=== PATIENT | male | born 1940 | race Caucasian/White ===

== ENCOUNTER → 2016-11-21 | Outpatient (CLI) | payer OTHER, MEDICARE ==
[~2016-11-21] MED LIST: ASPI81TA28 PO; CYAN500T13 PO; LISI-791 PO; NAPR1TAB9 PO; PROP120C PO; PRVC40 PO
--- NOTE | 2016-11-22 18:21 | PULMONARY FUNCTION TEST ---
CLINICAL DATA: A 76-year-old male with a height of 70 inches and a weight of [address] Abiola Soria with a history of asbestos exposure, cough, and dyspnea. He has been a smoker in the past. Spirometry pre- and post-bronchodilator, lung volumes, and DLCO were performed. FINDINGS: Prebronchodilator spirometry demonstrates mild obstructive airways disease. FVC was 80% of predicted. FEV1 was 74% of predicted. [id number] was 49% of predicted. There was no significant improvement after inhaled bronchodilator. Lung volumes demonstrate air trapping. There was no evidence of restrictive lung disease. Residual volume was 262% of predicted. Diffusion capacity was normal at 113% of predicted. IMPRESSION: Mild obstructive airways disease with no significant improvement after inhaled bronchodilator. There is no evidence of restrictive lung disease or reduction in diffusion capacity as would be expected with interstitial lung disease related asbestosis. MTDD
== END | disposition home or self-care (01) ==
LOC: C.RC 12:57
PROVIDERS: ATTEND Family Medicine
DX: J61 Pneumoconiosis due to asbestos and other mineral fibers (principal)

== ENCOUNTER → 2017-01-30 | Outpatient (CLI) | payer OTHER, MEDICARE ==
[2017-01-30 13:31] LABS: BASO % 0.3 %; BASO ABS # 0.02 K/uL (0-0.2); COMPLETE YES; EOS % 3.2 %; HEMATOCRIT 46.8 % (42-52); LYMPH % 20.6 %; LYMPH ABS # 1.22 K/uL (1.2-3.4); MEAN CELL VOLUME 90.3 fL (80-100); MEAN CORPUSCULAR HEMOGLOBIN 30.1 pg (25-34); MEAN CORPUSCULAR HGB CONC 33.3 g/dl (32-36); MONO % 12.4 %; NEUT % 63.5 %; PLATELET COUNT 142 K/uL (130-400); RED BLOOD COUNT 5.18 M/uL (4.7-6.1); WHITE BLOOD COUNT 5.91 K/uL (4.8-10.8)
[2017-01-30 15:01] LABS: ALT/SGPT 19 U/L (12-78); AST/SGOT 15 U/L (15-37); BLOOD UREA NITROGEN 25 mg/dl (7-18); BUN/CREATININE RATIO 22.4 (10-20); CALCIUM 9.1 mg/dl (8.5-10.1); CARBON DIOXIDE 30 mmol/L (21-32); CHLORIDE 106 mmol/L (98-107); CHOLESTEROL 135 mg/dl (0-200); GLUCOSE 89 mg/dl (70-99); SODIUM 140 mmol/L (136-145); TRIGLYCERIDES 151 mg/dl (0-150); VERY LOW DENSITY LIPOPROT CALC 30 mg/dl
[2017-01-30 15:05] LABS: ALB/GLOB RATIO 1.6 (0.9-2); ALKALINE PHOSPHATASE 74 U/L (45-117); CHOLESTEROL/HDL RATIO 3.4; HDL CHOLESTEROL 40 mg/dl; LDL CHOLESTEROL CALCULATED 65 mg/dl
== END | disposition home or self-care (01) ==
LOC: C.LABMFLN 09:01
PROVIDERS: ATTEND Family Medicine
DX: I10 Essential (primary) hypertension (principal); E78.5 Hyperlipidemia, unspecified

== ENCOUNTER 2017-08-31 00:50 | Observation (INO) | payer OTHER, MEDICARE ==
[2017-08-31] VITALS (10 sets, daily range): BP systolic 106–148; BP diastolic 55–89; PULSE 53–74; TEMP 36.3–37; O2SAT 90–95; Ht 177.8 cm; Wt 93.4 kg
[~2017-08-31] VITALS: Ht 177.8 cm; Wt 93.4 kg
--- NOTE | 2017-08-31 01:05 | EMERGENCY ROOM VISIT NOTE ---
History Report prepared by Patrick: Ventura Lowe Under the Supervision of: Dr. Shahram Hanna M.D. First contact with patient: 00:59 Chief Complaint: COUGH Stated Complaint: CHEST CONGESTION AND WHEEZING History of Present Illness The patient is a 76 year old male who presents to the Emergency Room with complaints of constant chest pain beginning a few days ago. The patient states that he was recently taken off lisinopril by his doctor. He notes that he has symptoms of congestion, a cough, and SOB. He reports that his wheezing worsens when he walks. He denies any abdominal pain. He also denies any history of clots , diabetes, and abdominal surgeries, but states that he has a history of asbestos exposure from his years in the [employer]. Source of History: patient Onset: a few days ago Position: chest Timing: constant Modifying Factors (Worsening): other (walking) Associated Symptoms: + cough, + SOB, No abdominal pain Note: He complains of congestion. Review of Systems See HPI for pertinent positives & negatives. A total of 10 systems reviewed and were otherwise negative. Past Medical & Surgical Medical Problems: (1) Bronchospasm (2) Dyspnea and respiratory abnormalities (3) No chronic problems Family History FHx: heart disease FHx: hypertension FHx: kidney disease Social History Smoking Status: Never Smoker Alcohol Use: none Drug Use: none Marital Status: Housing Status: lives with family Occupation Status: retired Current/Historical Medications Scheduled Aspirin (Aspirin Ec), 81 MG PO HS Cyanocobalamin (Vitamin B12 500MCG), 2,500 MCG PO QAM Losartan Potassium (Cozaar), 25 MG PO DAILY Pravastatin Sod (Pravastatin Sodium), 80 MG PO HS Propranolol Hcl (Propranolol Hcl Er), 120 MG PO QAM Allergies Coded Allergies: Hydrocortisone (Verified Allergy, Unknown, HALLUCIATIONS, 08/31/17) Physical Exam Vital Signs Date Time Temp Pulse Resp B/P (MAP) Pulse Ox O2 Delivery O2 Flow Rate FiO2 08/31/17 05:10 60 22 91 08/31/17 05:01 115/80 08/31/17 04:55 39 21 93 Room Air 08/31/17 04:40 55 23 92 08/31/17 04:31 122/61 08/31/17 04:25 39 16 94 08/31/17 04:10 52 23 93 08/31/17 03:55 39 17 92 08/31/17 03:46 135/76 08/31/17 03:41 109/69 08/31/17 03:40 37 24 93 08/31/17 03:33 104/73 08/31/17 03:25 52 19 93 08/31/17 03:11 08/31/17 03:10 45 25 95 08/31/17 03:05 67 21 08/31/17 03:02 08/31/17 02:57 106/61 08/31/17 02:50 50 30 98 08/31/17 02:10 64 20 143/90 97 Nebulizer 8.0 08/31/17 02:10 64 08/31/17 02:00 54 18 95 Room Air 08/31/17 00:53 36.8 68 18 170/62 94 Room Air Physical Exam GENERAL: Patient is well appearing and in mild distress. HEENT: No acute trauma, normocephalic atraumatic, mucous membranes moist, no nasal congestion, no scleral icterus. NECK: No stridor, no adenopathy, no meningismus, trachea is midline. LUNGS: No rhonchi. Dyspneic appearing, diffuse tight lung sounds with inspiratory and expiatory wheezing. HEART: Regular rate and rhythm. No murmurs, rubs, gallops appreciated. ABDOMEN: Soft, nontender, bowel sounds positive, no masses appreciated, no peritonitis. BACK: No midline tenderness, no CVA tenderness EXTREMITIES: Normal motion all extremities, no cyanosis, no edema. NEUROLOGIC: Alert and oriented, no acute motor or sensory deficits, no focal weakness, cranial nerves grossly intact. SKIN: No rash, no jaundice, no diaphoresis. Medical Decision & Procedures ER Provider Diagnostic Interpretation: Radiology results and stated below per my review and interpretation: 1 VIEW CHEST X-RAY: Haziness throughout left and right lower lobes. Moderately enlarged heart. Fibrotic changes noted. Chest X-RAY mildly worse compared to previous chest X-RAY from 2 years ago. Laboratory Results 08/31/17 01:40 Red Blood Count 5.23, Mean Corpuscular Volume 89.7, Mean Corpuscular Hemoglobin 29.4, Mean Corpuscular Hemoglobin Concent 32.8, Mean Platelet Volume 10.4, Neutrophils (%) (Auto) 71.7, Lymphocytes (%) (Auto) 11.9, Monocytes (%) (Auto) 14.1, Eosinophils (%) (Auto) 1.9, Basophils (%) (Auto) 0.3, Neutrophils # (Auto ) 4.89, Lymphocytes # (Auto) 0.81, Monocytes # (Auto) 0.96, Eosinophils # (Auto ) 0.13, Basophils # (Auto) 0.02 08/31/17 01:40 Test 08/31/17 01:40 White Blood Count 6.82 K/uL (4.8-10.8) Red Blood Count 5.23 M/uL (4.7-6.1) Hemoglobin 15.4 g/dL (14.0-18.0) Hematocrit 46.9 % (42-52) Mean Corpuscular Volume 89.7 fL (80-100) Mean Corpuscular Hemoglobin 29.4 pg (25-34) Mean Corpuscular Hemoglobin Concent 32.8 g/dl (32-36) Platelet Count 119 K/uL (130-400) Mean Platelet Volume 10.4 fL (7.4-10.4) Neutrophils (%) (Auto) 71.7 % Lymphocytes (%) (Auto) 11.9 % Monocytes (%) (Auto) 14.1 % Eosinophils (%) (Auto) 1.9 % Basophils (%) (Auto) 0.3 % Neutrophils # (Auto) 4.89 K/uL (1.4-6.5) Lymphocytes # (Auto) 0.81 K/uL (1.2-3.4) Monocytes # (Auto) 0.96 K/uL (0.11-0.59) Eosinophils # (Auto) 0.13 K/uL (0-0.5) Basophils # (Auto) 0.02 K/uL (0-0.2) RDW Standard Deviation 44.1 fL (36.4-46.3) RDW Coefficient of Variation 13.4 % (11.5-14.5) Immature Granulocyte % (Auto) 0.1 % Immature Granulocyte # (Auto) 0.01 K/uL (0.00-0.02) D-Dimer 360 ug/L FEU (0-500) Anion Gap 5.0 mmol/L (3-11) Est Creatinine Clear Calc Drug Dose 69.6 ml/min Estimated GFR () 79.5 Estimated GFR (Non- 68.6 BUN/Creatinine Ratio 18.4 (10-20) Calcium Level 9.0 mg/dl (8.5-10.1) Troponin I < 0.015 ng/ml (0-0.045) Laboratory results as reviewed by me. Medications Administered Medications (Trade) Dose Ordered Sig/Nupur Route Start Time Stop Time Status Last Admin Dose Admin Albuterol/ Ipratropium (Duoneb) 12 ml ONE ONCE INH 08/31/17 01:15 08/31/17 01:16 DC 08/31/17 01:56 12 ML Dexamethasone Sodium Phosphate (Dexamethasone Inj Pf) 10 mg NOW ONCE IV 08/31/17 01:15 08/31/17 01:16 DC 08/31/17 01:37 10 MG ECG Indication: chest pain Rate (beats per minute): 67 Rhythm: sinus rhythm Findings: RBBB, other (Multiple PVCs) Change: Patient's electrocardiogram interpreted by me. ED Course 0100: The patient was evaluated in room C8. A complete history and physical exam was performed. 0220: I reevaluated and updated the patient. She is still on a nebulizer. He says that his breathing is better. On his lung exam, breath sounds have improved but there is still extensive wheezing. While evaluating him, his heart rate dropped to 30 for about a minute. 0207: I rechecked the patient. After the nebulizer, the patient is still wheezing quite significantly. 0311: Discussed the patient's case with Dr. Muro - Resident stone gluer for SHARRI Chambers. 0400: Discussed the patient's case with Dr. Muro. 0416: Upon reevaluation, the patient is stable. Discussed results and treatment plan with the patient. He verbalized understanding and agreement with the treatment plan. Discussed the patient's case with SHARRI Chambers. The patient will be evaluated for further treatment and disposition. Medical Decision Differential: Infectious, Reactive Airway Disease, Pneumonia, Pneumothorax, COPD , CHF, ACS, Pulmonary Embolism, MSK, GI, Dissection, amongst other etiologies entertained. 76 yr old male arrives for evaluation of worsening shortness of breath. He is not septic appearing and afebrile on arrival with good vitals. He has history of asbestos related lung disease but notes usually no wheezing nor significant breathing difficulties. Over last 2 week worsening SHOB. He is quite tight with diffuse wheezing on exam initially. Given 1-2 hour long neb with improvement htough still dyspneic. Discussed with him and family who note this is clearly not his baseline. Does have questionable RLL infiltrate vs fibrotic lung disease. Without overt infection by rest of exam held on abx until hospitalist evaluation. Discussed at length with them and given his exam, along with this odd finding of severe bradycardia (despite asymtomatic) will bring in for further treatment/work-up while waiting on steroids to set in. Medication Reconcilliation Current Medication List: was personally reviewed by me Blood Pressure Screening Patient's blood pressure: Normal blood pressure Blood pressure disposition: Did not require urgent referral Consults Time Called: 0308 Consulting Physician: Dr. Muro - Resident stone gluer [place]. [place]izcaino [facility] [place]: [phone]: Discussed the patient's case with Dr. Muro. 0400: Discussed the patient's case with Dr. Muro. Additional Consults: Time Called: 0413 Consulted Physician: Dr. Tom Vizcaino [facility] [place]: 0416 Additional Comments: Discussed the patient's case. The patient will be evaluated for further treatment and disposition. Impression Primary Impression: COPD exacerbation Additional Impression: Bradycardia Scribe Attestation The scribe's documentation has been prepared under my direction and personally reviewed by me in its entirety. I confirm that the note above accurately reflects all work, treatment, procedures, and medical decision making performed by me. Departure Information Dispostion Being Evaluated By Hospitalist Referrals Abiola Soria M.D. (PCP) Patient Instructions My [facility] Problem Qualifiers
[2017-08-31] MEDS ORDERED: DEXAMETHASONE **PF** INJ 10 MG/ML VIAL IV ONE (01:15)
[2017-08-31] MEDS ORDERED: ALBUT/IPRATROP 3MG/0.5MG NEB 3 ML VIAL INH ONE (01:15)
[2017-08-31] MEDS ORDERED: LOSA25TA18 PO (01:46)
[2017-08-31 02:02] LABS: BASO % 0.3 %; BASO ABS # 0.02 K/uL (0-0.2); EOS % 1.9 %; EOS ABS # 0.13 K/uL (0-0.5); HEMATOCRIT 46.9 % (42-52); HEMOGLOBIN 15.4 g/dL (14.0-18.0); IG# 0.01 K/uL (0.00-0.02); LYMPH % 11.9 %; LYMPH ABS # 0.81 K/uL (1.2-3.4); MEAN CELL VOLUME 89.7 fL (80-100); MEAN CORPUSCULAR HEMOGLOBIN 29.4 pg (25-34); MEAN CORPUSCULAR HGB CONC 32.8 g/dl (32-36); MEAN PLATELET VOLUME 10.4 fL (7.4-10.4); MONO % 14.1 %; MONO ABS # 0.96 K/uL (0.11-0.59); NEUT % 71.7 %; NEUT ABS # 4.89 K/uL (1.4-6.5); PLATELET COUNT 119 K/uL (130-400); RED CELL DISTRIBUTION WIDTH CV 13.4 % (11.5-14.5); RED CELL DISTRIBUTION WIDTH SD 44.1 fL (36.4-46.3); WHITE BLOOD COUNT 6.82 K/uL (4.8-10.8)
[2017-08-31 02:15] LABS: BLOOD UREA NITROGEN 19 mg/dl (7-18); CARBON DIOXIDE 28 mmol/L (21-32); CREATININE 1.05 mg/dl (0.60-1.40); GLUCOSE 95 mg/dl (70-99); POTASSIUM 4.1 mmol/L (3.5-5.1); SODIUM 138 mmol/L (136-145)
[2017-08-31] MEDS ORDERED: MAGNESIUM HYDROXIDE SUSP 30 ML UDC PO PRN (04:30)
[2017-08-31] MEDS ORDERED: MoRPHine SULFATE 2 MG/ML CARP IV PRN (04:30)
[2017-08-31] MEDS ORDERED: ALUMINUM/MAGNESIUM/SIMETH (MAALOX MAX) 30 ML UDC PO PRN (04:30)
[2017-08-31] MEDS ORDERED: ACETAMINOPHEN 325 MG TAB PO PRN (04:30)
[2017-08-31] MEDS ORDERED: NITROGLYCERIN 0.4 MG SL PER TAB CHARGE SL PRN (04:30)
[2017-08-31] MEDS ORDERED: POLYETHYLENE (MIRALAX) 17 GM PACK PO PRN (04:30)
--- NOTE | 2017-08-31 04:35 | History and Physical ---
History & Physical Date & Time of Service: Aug 31, 2017 at 04:34 Chief Complaint: Chest Congestion And Wheezing Primary Care Physician: Abiola Soria M.D. History of Present Illness Source: patient, hospital records This is a 76 yo m with a h/o asbestosis, CABG (1984 x 3), essential tremor treated by neurostimulator that is suffering from a acute dyspneic episodes which started earlier this evening. The patient states that throughout the day today he had significant and increased rhinorrhea and which resulted in increased coughing and soon dyspnea. When he arrived in the ED he was in respiratory distress and diffusely wheezing. He received Decadron and duoneb x 1 hour. On assessment that patient states he has significant improvement in symptoms however occasional wheezing, He has not tried ambulating as of yet. Denies sputum production. He never had any chest pain, abdominal pain, fever, myalgias. While on the monitor he was found to have episodes of bigeminy which were asymptomatic. Past Medical/Surgical History CABG 1984 x 3 vessels Asbestosis Essential tremor with neurostimulator CAD HLD Family History FHx: heart disease FHx: hypertension FHx: kidney disease Social History Smoking Status: Never Smoker Smokeless Tobacco Use: No Alcohol Use: none Drug Use: none Marital Status: Housing status: lives with family Occupational Status: retired Immunizations History of Influenza Vaccine: Yes History of Tetanus Vaccine?: Yes History of Pneumococcal: Yes History of Hepatitis B Vaccine: No Allergies Coded Allergies: Hydrocortisone (Verified Allergy, Unknown, HALLUCIATIONS, 08/31/17) Home Medications Scheduled Aspirin (Aspirin Ec), 81 MG PO HS Cyanocobalamin (Vitamin B12 500MCG), 2,500 MCG PO QAM Losartan Potassium (Cozaar), 25 MG PO DAILY Pravastatin Sod (Pravastatin Sodium), 80 MG PO HS Propranolol Hcl (Propranolol Hcl Er), 120 MG PO QAM Review of Systems Constitutional: No fever, No chills, No sweats Eyes: No worsening of vision ENT: No hearing loss Respiratory: + cough, + wheezing, + shortness of breath, + dyspnea on exertion , + dyspnea at rest, No sputum, No hemoptysis Cardiovascular: No chest pain, No palpitations Abdomen: No pain, No nausea, No vomiting, No diarrhea, No constipation Musculoskeletal: No joint pain, No muscle pain Genitourinary - Male: No hematuria Neurologic: No weakness, No numbness/tingling, No balance problems Psychiatric: No depression symptoms Endocrine: No fatigue Hematologic / Lymphatic: No abnormal bleeding/bruising Integumentary: No rash Physical Exam Vital Signs Date Time Temp Pulse Resp B/P (MAP) Pulse Ox O2 Delivery O2 Flow Rate FiO2 08/31/17 03:05 67 21 08/31/17 03:02 08/31/17 02:57 106/61 08/31/17 02:50 50 30 98 08/31/17 02:10 64 20 143/90 97 Nebulizer 8.0 08/31/17 02:10 64 08/31/17 02:00 54 18 95 Room Air 08/31/17 00:53 36.8 68 18 170/62 94 Room Air General Appearance: no apparent distress Head: normocephalic, atraumatic Eyes: normal inspection ENT: normal ENT inspection Neck: supple Respiratory/Chest: + respiratory distress (mild), + decreased breath sounds ( bilat bases), + crackles (bilat bases), + wheezing (exp wheeze) Cardiovascular: regular rate, rhythm, no murmur, normal peripheral pulses, + pertinent finding (occasional PVC appreciated) Abdomen/GI: normal bowel sounds, non tender, soft Back: normal inspection, no CVA tenderness, normal range of motion Extremities/Musculoskelatal: normal inspection, no calf tenderness, no pedal edema, normal range of motion Neurologic/Psych: alert, normal mood/affect, oriented x 3 Skin: normal color, warm/dry, no rash Lymphatic: no adenopathy Diagnostics Laboratory Results Results Past 24 Hours Test 08/31/17 01:40 Range/Units White Blood Count 6.82 4.8-10.8 K/uL Red Blood Count 5.23 4.7-6.1 M/uL Hemoglobin 15.4 14.0-18.0 g/dL Hematocrit 46.9 42-52 % Mean Corpuscular Volume 89.7 80-100 fL Mean Corpuscular Hemoglobin 29.4 25-34 pg Mean Corpuscular Hemoglobin Concent 32.8 32-36 g/dl Platelet Count 119 130-400 K/uL Mean Platelet Volume 10.4 7.4-10.4 fL Neutrophils (%) (Auto) 71.7 % Lymphocytes (%) (Auto) 11.9 % Monocytes (%) (Auto) 14.1 % Eosinophils (%) (Auto) 1.9 % Basophils (%) (Auto) 0.3 % Neutrophils # (Auto) 4.89 1.4-6.5 K/uL Lymphocytes # (Auto) 0.81 1.2-3.4 K/uL Monocytes # (Auto) 0.96 0.11-0.59 K/uL Eosinophils # (Auto) 0.13 0-0.5 K/uL Basophils # (Auto) 0.02 0-0.2 K/uL RDW Standard Deviation 44.1 36.4-46.3 fL RDW Coefficient of Variation 13.4 11.5-14.5 % Immature Granulocyte % (Auto) 0.1 % Immature Granulocyte # (Auto) 0.01 0.00-0.02 K/uL D-Dimer 360 0-500 ug/L FEU Sodium Level 138 136-145 mmol/L Potassium Level 4.1 3.5-5.1 mmol/L Chloride Level 105 98-107 mmol/L Carbon Dioxide Level 28 21-32 mmol/L Anion Gap 5.0 3-11 mmol/L Blood Urea Nitrogen 19 7-18 mg/dl Creatinine 1.05 0.60-1.40 mg/dl Est Creatinine Clear Calc Drug Dose 69.6 ml/min Estimated GFR () 79.5 Estimated GFR (Non- 68.6 BUN/Creatinine Ratio 18.4 10-20 Random Glucose 95 70-99 mg/dl Calcium Level 9.0 8.5-10.1 mg/dl Troponin I < 0.015 0-0.045 ng/ml Diagnostic Radiology CXR- possible right lower lobe consolidation, post sternotomy changes noted and stimulator noted EKG HR 67, bigeminy noted, no ischemic changes appreciated Impression Assessment and Plan This is a 76 yo m with a h/o asbestosis, CABG presenting to us with acute bronchospasm Bronchospasm possibly secondary to viral illness vs bacterial infection - tele admission ( abn EKG) - Prednisone PO initiated 60 mg with taper - Rocephin and doxy - procal - Xopenex/ atrovent inhalation CABG/ HLD - cont ASA 81 mg - Losartan 25 mg, Pravastatin 80 mg and Propranolol 120 mg cont'd DNR confirmed by patient and family Attending addendum: I have physically seen this patient, have supervised the medical residents activities, and agree with the H&P unless as otherwise noted. Assessment and Plan: Acute bronchospasm/history of asbestos exposure/probable pulmonary fibrosis with superimposed infection-- Ceftriaxone IV and doxycycline by mouth Xopenex/Atrovent nebulizer every 6 hours while awake and every 2 hours when necessary Course of oral prednisone. CAD/hypertension/history of CABG/nonspecific ST-T changes on EKG-- The patient will be admitted to telemetry for serial cardiac enzymes, serial EKG's, cardiac rhythm monitoring and a 2-D echocardiogram with Dopplers. Continue aspirin 81 mg daily Continue losartan 25 mg daily and propranolol ER 120 mg by mouth daily. Level of Care Telemetry Advanced Directives Existing Advance Directive: No Existing Living Will: No Existing Power of Cupboard Builder: No Resuscitation Status FULL RESUSCITATION VTE Prophylaxis VTE Risk Assessment Done? Y/N: Yes Risk Level: Moderate Given or contraindicated: Unfractionated heparin SQ, SCD's Social Service Consult None Apply Note Total Time: Critical Care 30 - 74 minutes Additional Copies To Abiola Soria M.D.
[2017-08-31] MEDS ORDERED: IV FLUIDS COMPLETED PRN (05:30)
--- NOTE | 2017-08-31 06:34 | DIAGNOSTIC IMAGING REPORT ---
CHEST ONE VIEW PORTABLE CLINICAL HISTORY: Chest Pain dyspnea COMPARISON STUDY: 04/25/2016 FINDINGS: Mild chronic megaly. Median sternotomy. Parenchymal infiltrate left base. Lungs otherwise appear clear. IMPRESSION: Infiltrate left base. The above report was generated using voice recognition software. It may contain grammatical, syntax or spelling errors. Electronically signed by: Caesar Oliver M.D. 08/31/2017 6:33 AM Dictated Date/Time: 08/31/2017 6:31 AM
[2017-08-31 07:17] LABS: INR 1.1 (0.9-1.1)
[2017-08-31] MEDS: IPRATROPIUM BROMIDE NEB SOLN 0.02% 2.5 ML VIAL INH SCH ×3 (07:17→19:12)
[2017-08-31] MEDS: LEVALBUTEROL 1.25MG/3ML NEB INH SCH ×3 (07:17→19:12)
[2017-08-31] MEDS: CEFTRIAXONE SOD INJ 1 GM in DEXTROSE 5% ADD-VANTAGE 50ML 50 ML IV SCH (07:55)
[2017-08-31] MEDS: DOXYCYCLINE IV 100 MG in DEXTROSE 5% 100ML 100 ML IV SCH ×2 (09:43→20:41)
[2017-08-31] MEDS: HEPARIN SOD 5000 UNIT/0.5 ML CARP SQ SCH ×2 (09:47→20:41)
--- NOTE | 2017-08-31 19:36 | Progress Note ---
Subjective Date of Service: Aug 31, 2017. Subjective Pt evaluation today including: conversation w/ patient, physical exam, chart review, lab review, review of inpatient medication list Pain: controlled PO Intake: adequate Voiding: no voiding problems feeling slightly better but still has SOB Problem List Medical Problems: (1) Bradycardia Status: Acute (2) COPD exacerbation Status: Acute Review of Systems Constitutional: No see HPI, No fever, No chills, No sweats, No weight loss, No weakness, No fatigue, No problem reported Eyes: No see HPI, No worsening of vision, No eye pain, No redness, No discharge , No diplopia, No problem reported ENT: No see HPI, No hearing loss, No unusual epistaxis, No nasal symptoms, No sore throat, No tinnitus, No dental problems, No trouble swallowing, No problem reported Respiratory: + cough, + wheezing, + shortness of breath, No see HPI, No sputum , No dyspnea on exertion, No dyspnea at rest, No hemoptysis, No problem reported Cardiac: No see HPI, No chest pain, No orthopnea, No PND, No edema, No claudication, No palpitations, No problem reported Abdomen: No see HPI, No pain, No nausea, No vomiting, No diarrhea, No constipation, No GI bleeding, No problem reported Musculoskeletal: No see HPI, No joint pain, No muscle pain, No swelling, No calf pain, No problem reported Male : No see HPI, No dysuria, No urinary frequency, No incontinence, No nocturia more than once/night, No slowing stream, No hematuria, No sexual dysfunction, No problem reported Neurologic: No see HPI, No memory loss, No paralysis, No weakness, No numbness/ tingling, No vertigo, No balance problems, No problem reported Psychiatric: No see HPI, No depression symptoms, No anhedonism, No anxiety, No insomnia, No substance abuse, No problem reported Heme: No see HPI, No abnormal bleeding/bruising, No clotting problems, No swollen lymph nodes, No night sweats, No problem reported Endo: No see HPI, No fatigue, No excessive thirst, No excessive urination, No problem reported Skin: No see HPI, No rash, No itch, No new/changing skin lesions, No color change, No bleeding, No problem reported Medications Current Inpatient Medications Medications (Trade) Dose Ordered Sig/Nupur Route Start Time Stop Time Status Last Admin Dose Admin Heparin Sodium (Porcine) (Heparin Sq 5000 Unit/0.5ml) 5,000 unit Q12 SQ 08/31/17 09:00 09/30/17 08:59 08/31/17 09:47 5,000 UNIT Acetaminophen (Tylenol Tab) 650 mg Q4H PRN PO 08/31/17 04:30 09/30/17 04:29 Al Hydrox/Mg Hydrox/Simethicone (Maalox Max Susp) 15 ml Q4H PRN PO 08/31/17 04:30 09/30/17 04:29 Magnesium Hydroxide (Milk Of Magnesia Susp) 30 ml Q12H PRN PO 08/31/17 04:30 09/30/17 04:29 Nitroglycerin (Nitrostat Tab) 0.4 mg UD PRN SL 08/31/17 04:30 09/30/17 04:29 Morphine Sulfate (MoRPHine SULFATE INJ) 2 mg Q30M PRN IV 08/31/17 04:30 09/14/17 04:29 Polyethylene (Miralax Powder Packet) 17 gm DAILY PRN PO 08/31/17 04:30 09/30/17 04:29 Prednisone (PredniSONE TAB) 60 mg Taper DAILY PO 08/31/17 09:00 09/12/17 08:59 08/31/17 07:55 60 MG Levalbuterol (Xopenex 1.25MG/ 3ML Neb) 1.25 mg Q6R INH 08/31/17 09:00 09/30/17 08:59 08/31/17 19:12 1.25 MG Ipratropium [place] (Atrovent 0.02% 0.5MG/2.5ML Neb) 0.5 mg Q6R INH 08/31/17 09:00 09/30/17 08:59 08/31/17 19:12 0.5 MG Ceftriaxone Sodium 1 gm/ Dextrose 50 ml @ 100 mls/hr Q24H IV 08/31/17 07:00 09/02/17 06:59 08/31/17 07:55 100 MLS/HR Doxycycline Hyclate 100 mg/ Dextrose 110 ml @ 50 mls/hr BID IV 08/31/17 09:00 09/02/17 08:59 08/31/17 09:43 50 MLS/HR Miscellaneous (Iv Fluids Completed) 1 ea PRN PRN N/A 08/31/17 05:30 08/31/18 05:29 Objective Vital Signs Date Time Temp Pulse Resp B/P (MAP) Pulse Ox O2 Delivery O2 Flow Rate FiO2 08/31/17 19:12 68 16 93 Room Air 08/31/17 16:00 Room Air 08/31/17 15:30 37.0 56 20 110/61 (77) 92 Room Air 08/31/17 14:18 70 16 93 Room Air 08/31/17 12:00 Room Air 08/31/17 11:24 36.7 72 16 116/55 (75) 94 Room Air 08/31/17 08:00 36.8 53 18 148/89 94 Room Air 08/31/17 07:20 36.7 71 16 106/67 (80) 94 Room Air 08/31/17 07:18 64 16 95 Room Air 08/31/17 06:15 51 21 93 08/31/17 06:02 124/54 08/31/17 06:00 37 18 91 08/31/17 05:45 35 13 92 08/31/17 05:32 123/42 08/31/17 05:30 43 20 92 08/31/17 05:15 55 19 93 08/31/17 05:10 60 22 91 08/31/17 05:01 115/80 08/31/17 04:55 39 21 93 Room Air 08/31/17 04:40 55 23 92 08/31/17 04:31 122/61 08/31/17 04:25 39 16 94 08/31/17 04:10 52 23 93 08/31/17 03:55 39 17 92 08/31/17 03:46 135/76 08/31/17 03:41 109/69 08/31/17 03:40 37 24 93 08/31/17 03:33 104/73 08/31/17 03:25 52 19 93 08/31/17 03:11 08/31/17 03:10 45 25 95 08/31/17 03:05 67 21 08/31/17 03:02 08/31/17 02:57 106/61 08/31/17 02:50 50 30 98 08/31/17 02:10 64 20 143/90 97 Nebulizer 8.0 08/31/17 02:10 64 1/26/18 02:00 54 18 95 Room Air 08/31/17 00:53 36.8 68 18 170/62 94 Room Air Physical Exam General Appearance: WD/WN, no apparent distress Eyes: normal inspection, EOMI ENT: normal ENT inspection, hearing grossly normal Neck: supple Respiratory/Chest: chest non-tender, no accessory muscle use, + decreased breath sounds, + crackles, + wheezing Cardiovascular: regular rate, rhythm, no edema, no gallop, no JVD, no murmur Abdomen: normal bowel sounds, non tender, soft, no organomegaly, no pulsatile mass Extremities: normal range of motion, non-tender, normal inspection, no pedal edema, no calf tenderness Neurologic/Psychiatric: data warehouse specialist II-XII nml as tested, no motor/sensory deficits, alert, normal mood/affect, oriented x 3 Skin: normal color, warm/dry, no rash Laboratory Results Last 24 Hours Test 08/31/17 00:00 08/31/17 01:40 08/31/17 06:58 White Blood Count 6.82 K/uL Red Blood Count 5.23 M/uL Hemoglobin 15.4 g/dL Hematocrit 46.9 % Mean Corpuscular Volume 89.7 fL Mean Corpuscular Hemoglobin 29.4 pg Mean Corpuscular Hemoglobin Concent 32.8 g/dl Platelet Count 119 K/uL Mean Platelet Volume 10.4 fL Neutrophils (%) (Auto) 71.7 % Lymphocytes (%) (Auto) 11.9 % Monocytes (%) (Auto) 14.1 % Eosinophils (%) (Auto) 1.9 % Basophils (%) (Auto) 0.3 % Neutrophils # (Auto) 4.89 K/uL Lymphocytes # (Auto) 0.81 K/uL Monocytes # (Auto) 0.96 K/uL Eosinophils # (Auto) 0.13 K/uL Basophils # (Auto) 0.02 K/uL RDW Standard Deviation 44.1 fL RDW Coefficient of Variation 13.4 % Immature Granulocyte % (Auto) 0.1 % Immature Granulocyte # (Auto) 0.01 K/uL D-Dimer 360 ug/L FEU Sodium Level 138 mmol/L Potassium Level 4.1 mmol/L Chloride Level 105 mmol/L Carbon Dioxide Level 28 mmol/L Anion Gap 5.0 mmol/L Blood Urea Nitrogen 19 mg/dl Creatinine 1.05 mg/dl Est Creatinine Clear Calc Drug Dose 69.6 ml/min Estimated GFR () 79.5 Estimated GFR (Non- 68.6 BUN/Creatinine Ratio 18.4 Random Glucose 95 mg/dl Calcium Level 9.0 mg/dl Troponin I < 0.015 ng/ml Procalcitonin < 0.05 ng/ml Prothrombin Time 11.1 SECONDS Prothromb Time International Ratio 1.1 Assessment and Plan 76 years old man w Hx of Asbestus exposure, CAD S/P CABG and dyslipidemia presented with URTI and bronchospasm he was found to have an abnormal EKG Assessment: SOB secondary to below Bronchitis unspecified (viral or bacterial) abnormal EKG Asbestosis CAD S/P CABG Dyslipidemia Plan: continue bronchodilators (switch Duoneb to xopenex/ipratrobium) continue tapering dose of steroids continue Abx for possible bronchitis add lactinex for C diff prophylaxis order labs in am serial cardiac enz eventually will need ischemic work up so will consult multiple spindle router operator from now , Dr Chapman continue ASA , Losartan 25 mg, Pravastatin 80 mg and Propranolol Heparin for DVt prophylaxis
[2017-08-31] MEDS ORDERED: LEVALBUTEROL/IPRATROPIUM NEB INH SCH (21:00)
[2017-09-01 04:07] VITALS: BP 138/64; PULSE 75; TEMP 36.7; O2SAT 92
[2017-09-01 06:22] LABS: BASO % 0.1 %; BASO ABS # 0.01 K/uL (0-0.2); HEMATOCRIT 43.8 % (42-52); HEMOGLOBIN 14.5 g/dL (14.0-18.0); IG# 0.02 K/uL (0.00-0.02); LYMPH % 8.5 %; LYMPH ABS # 0.95 K/uL (1.2-3.4); MEAN CELL VOLUME 89.2 fL (80-100); MEAN CORPUSCULAR HEMOGLOBIN 29.5 pg (25-34); MEAN CORPUSCULAR HGB CONC 33.1 g/dl (32-36); MEAN PLATELET VOLUME 10.5 fL (7.4-10.4); MONO % 12.3 %; MONO ABS # 1.37 K/uL (0.11-0.59); NEUT % 78.9 %; NEUT ABS # 8.79 K/uL (1.4-6.5); PLATELET COUNT 128 K/uL (130-400); RED CELL DISTRIBUTION WIDTH CV 13.6 % (11.5-14.5); RED CELL DISTRIBUTION WIDTH SD 44.2 fL (36.4-46.3); WHITE BLOOD COUNT 11.14 K/uL (4.8-10.8)
[2017-09-01] MEDS: CEFTRIAXONE SOD INJ 1 GM in DEXTROSE 5% ADD-VANTAGE 50ML 50 ML IV SCH (06:30)
[2017-09-01 06:49] LABS: ALBUMIN 3.5 gm/dl (3.4-5.0); CALCIUM 8.8 mg/dl (8.5-10.1); CREATININE 1.06 mg/dl (0.60-1.40); POTASSIUM 3.9 mmol/L (3.5-5.1)
[2017-09-01 06:51] LABS: TOTAL PROTEIN 6.2 gm/dl (6.4-8.2)
[2017-09-01] MEDS: IPRATROPIUM BROMIDE NEB SOLN 0.02% 2.5 ML VIAL INH SCH ×3 (07:01→15:26)
[2017-09-01] MEDS: LEVALBUTEROL 0.63MG/3 ML NEB INH SCH ×3 (07:01→15:27)
[2017-09-01 07:02] VITALS: PULSE 62; O2SAT 96
[2017-09-01 07:19] VITALS: BP 150/79; PULSE 62; TEMP 36.7; O2SAT 96
[2017-09-01] MEDS: DOXYCYCLINE IV 100 MG in DEXTROSE 5% 100ML 100 ML IV SCH (08:52)
[2017-09-01] MEDS: HEPARIN SOD 5000 UNIT/0.5 ML CARP SQ SCH (08:54)
[2017-09-01 11:10] VITALS: PULSE 60; O2SAT 93
[2017-09-01 11:56] VITALS: BP 111/59; PULSE 43; TEMP 36.7; O2SAT 94
--- NOTE | 2017-09-01 12:02 | ECHOCARDIOGRAM REPORT ---
*NOTICE TO RECEIVING LIBERTARIAN AGENCY This information is strictly Confidential and protected under [place] law. [place] law prohibits you from making any further disclosure of this information unless further disclosure is expressly permitted by the written consent of the person to whom it pertains or is authorized by law. A general authorization for the release of medical or other information is not sufficient for this purpose. Hospital accepts no responsibility if the information is made available to any other person, INCLUDING THE PATIENT. Interpretation Summary * Name: DAVID GREGORY Study Date: 09/01/2017 09:29 AM BP: 150/79 mmHg * Patient Location: [facility]\S\N277\S\2 HR: 62 * : 1940 (M/d/yyyy) Gender: Male Height: 70 in * Age: 76 yrs Ethnicity: CA Weight: 205 lb * Ordering Physician: Delmi Lowe * Referring Physician: Self, Referred * Performed By: Genesis Bingham RDCS * * Reason For Study: Abnormal EKG * BSA: 2.1 m2 * -- Conclusions -- * The left ventricle is normal in size. * There is moderate concentric left ventricular hypertrophy. * Ejection Fraction = 45-50%. * Left ventricular systolic function is mildly reduced. * The basal to mid inferior wall and the entire inferolateral smith are hypokinetic. * The right ventricle is normal in size and function. * The right ventricular systolic function is normal as assessed by tricuspid annular plane systolic excursion (TAPSE) (normal >1.5 cm). * The left atrium is severely dilated. * Aortic valve sclerosis mild, without significant aortic valvular stenosis. * There is moderate mitral regurgitation. * There is mild to moderate tricuspid regurgitation. * PA pressure 45 mm/hg assuming RA pressure of 3 mm/hg * Diastolic dysfunction, Grade III (restrictive pattern), consistent with markedly increased left atrial pressure. Procedure Details * A complete two-dimensional transthoracic echocardiogram was performed (2D, M-mode, Doppler and color flow Doppler). Left Ventricle * The left ventricle is normal in size. * There is moderate concentric left ventricular hypertrophy. * Ejection Fraction = 45-50%. * Left ventricular systolic function is mildly reduced. * The basal to mid inferior wall and the entire inferolateral smith are hypokinetic. Right Ventricle * The right ventricle is normal in size and function. * The right ventricular systolic function is normal as assessed by tricuspid annular plane systolic excursion (TAPSE) (normal >1.5 cm). Atria * The left atrium is severely dilated. * The right atrium is mildly dilated. Mitral Valve * The mitral valve leaflets appear thickened, but open well. * There is moderate mitral regurgitation. Tricuspid Valve * The tricuspid valve is not well visualized, but is grossly normal. * There is mild to moderate tricuspid regurgitation. * PA pressure 45 mm/hg assuming RA pressure of 3 mm/hg Aortic Valve * Aortic valve sclerosis mild, without significant aortic valvular stenosis. * No aortic regurgitation is present. Pulmonic Valve * The pulmonic valve is not well seen, but is grossly normal. * Mild to moderate pulmonic valvular regurgitation. Great Vessels * The aortic root is normal size. * There is aortic root sclerosis/calcification. Pericardium/Pleural * There is no pericardial effusion. Great Vessels * IVC not seen Left Ventricular Diastolic Function * Diastolic dysfunction, Grade III (restrictive pattern), consistent with markedly increased left atrial pressure. MMode 2D Measurements and Calculations IVSd 2.1 cm IVSs 1.4 cm LVIDd 5.3 cm LVIDs 3.8 cm LVPWd 0.98 cm LVPWs 1.5 cm IVS/LVPW 2.2 FS 27.3 % EDV(Teich) 133.0 ml ESV(Teich) 62.9 ml EF(Teich) 52.7 % EDV(cubed) 145.5 ml ESV(cubed) 55.9 ml EF(cubed) 61.5 % % IVS thick -34.08 % % LVPW thick 50.1 % LV mass(C)d 369.0 grams LV mass(C)dI 174.9 grams/m\S\2 LV mass(C)s 205.1 grams LV mass(C)sI 97.2 grams/m\S\2 SV(Teich) 70.0 ml SI(Teich) 33.2 ml/m\S\2 SV(cubed) 89.5 ml SI(cubed) 42.4 ml/m\S\2 EPSS 1.4 cm Ao root diam 3.4 cm Ao root area 9.0 cm\S\2 ACS 1.9 cm LA dimension 5.4 cm LA/Ao 1.6 LVAd ap4 39.3 cm\S\2 LVLd ap4 9.2 cm EDV(MOD-sp4) 137.7 ml EDV(sp4-el) 142.7 ml LVAs ap4 24.8 cm\S\2 LVLs ap4 7.6 cm ESV(MOD-sp4) 72.9 ml ESV(sp4-el) 68.8 ml EF(MOD-sp4) 47.1 % EF(sp4-el) 51.8 % LVAd ap2 38.4 cm\S\2 LVLd ap2 8.9 cm EDV(MOD-sp2) 141.0 ml EDV(sp2-el) 140.2 ml LVAs ap2 24.3 cm\S\2 LVLs ap2 7.7 cm ESV(MOD-sp2) 68.4 ml ESV(sp2-el) 64.7 ml EF(MOD-sp2) 51.5 % EF(sp2-el) 53.9 % LVLd %diff -3.05 % EDV(MOD-bp) 140.2 ml LVLs %diff 1.9 % ESV(MOD-bp) 70.7 ml EF(MOD-bp) 49.6 % SV(MOD-sp4) 64.8 ml SI(MOD-sp4) 30.7 ml/m\S\2 SV(MOD-sp2) 72.6 ml SI(MOD-sp2) 34.4 ml/m\S\2 SV(MOD-bp) 69.5 ml SI(MOD-bp) 32.9 ml/m\S\2 SV(sp4-el) 73.9 ml SI(sp4-el) 35.1 ml/m\S\2 SV(sp2-el) 75.5 ml SI(sp2-el) 35.8 ml/m\S\2 Doppler Measurements and Calculations MV E max froylan 123.5 cm/sec MV A max froylan 31.8 cm/sec MV E/A 3.9 MV V2 max 111.7 cm/sec MV max PG 5.0 mmHg MV V2 mean 53.2 cm/sec MV mean PG 1.4 mmHg MV V2 VTI 53.7 cm MV P1/2t max froylan 102.1 cm/sec MV P1/2t 112.3 msec MVA(P1/2t) 2.0 cm\S\2 MV dec slope 266.3 cm/sec\S\2 MV dec time 0.20 sec Ao V2 max 159.2 cm/sec Ao max PG 10.3 mmHg Ao max PG (full) 7.5 mmHg LV V1 max PG 2.8 mmHg LV V1 max 83.2 cm/sec MR max froylan 499.5 cm/sec MR max PG 99.8 mmHg MR mean froylan 392.7 cm/sec MR mean PG 68.8 mmHg MR VTI 180.0 cm MR PISA 0.74 cm\S\2 MR PISA radius 0.34 cm PA V2 max 103.5 cm/sec PA max PG 4.3 mmHg PI max froylan 226.5 cm/sec PI max PG 20.5 mmHg PI dec slope 245.7 cm/sec\S\2 PI P1/2t 270.0 msec TR max froylan 252.3 cm/sec
--- NOTE | 2017-09-01 14:23 | CARDIOLOGY CONSULTATION ---
DATE OF CONSULTATION: 09/01/2017 REQUESTING PHYSICIAN: Bibiana Muro ANSWERING SERVICE AGENT: Holden Chapman DO, [facility] for the [facility] as the patient is transferring care from [facility] to [facility] in [place]. REASON FOR CONSULTATION: Known coronary disease, status post coronary artery bypass grafting with new ischemic EKG changes. HISTORY OF PRESENT ILLNESS: The history is well documented. The patient describes over the last 3-4 weeks an increasing upper respiratory tract infection. He has been seen by Dr. Soria, who is his primary care doctor. He notes progressive shortness of breath over that 3-week period and then he notes on Sunday night, he just had an acute period of shortness of breath. He describes being unable to take a deep breath. He also describes chest tightness when he took a deep breath and increasing shortness of breath and associated cough. Due to his respiratory distress, he came to the Emergency Room where he was diffusely wheezing and he was in respiratory distress. He was given Decadron and DuoNebs with significant improvement. He does note that he has had a productive and thick cough since he has been in the hospital. He denies any fevers or chills. He feels significantly better this morning. Denies any chest pain or chest pressure currently. Denies any lightheadedness, dizziness, presyncope or syncope, lower extremity edema, symptoms of claudication. He sleeps on 1 pillow chronically. He denies any heart failure symptoms. The rest of review of systems is otherwise negative. PAST MEDICAL HISTORY: 1. Coronary artery disease status post coronary artery bypass grafting x3 in 1984 with an SVG to OM1 and a sequential SVG to the RCA and OM2. 2. Cardiac catheterization in March 2014 after a myocardial perfusion study suggested transient ischemic dilatation and a reversible perfusion defect. 3. Catheterization in March 2014 showed total occlusion of the wales RCA and circumflex. The left main and LAD were patent; the vein graft to OM1 was occluded. The sequential vein graft to the RCA and then to OM2 was patent. The OM2 filled OM1 in a retrograde fashion. 4. EF was in the range of 50% at the time of his catheterization. 5. Hyperlipidemia. 6. Essential tremor with a neurotransmitter. 7. Asbestosis. FAMILY HISTORY: Positive for heart disease, hypertension and kidney disease. SOCIAL HISTORY: He is a lifetime nonsmoker. He is . He lives with his who has an early onset dementia. He is retired. ALLERGIES: TO HYDROCORTISONE. MEDICATIONS: Reviewed in the electronic medical record. PHYSICAL EXAMINATION: GENERAL: He is awake, alert, and oriented x3. He is in no acute distress. He notes he feels significantly better. VITAL SIGNS: His heart rate is 62, respirations 18, blood pressure 150/79, his sat is 96% on room air. HEENNT: Mildly reduced carotid upstrokes. No evidence of carotid bruits. Jugular venous pressure did not appear elevated. His sclerae is anicteric. His hearing is normal. LUNGS: Globally decreased breath sounds, especially in the left base with bronchitic sounds in the left base. HEART: Regular rate and rhythm with occasional ectopy. No appreciable murmurs, rubs or gallops. ABDOMEN: Soft, nontender, nondistended, positive bowel sounds. EXTREMITIES: No clubbing, cyanosis or edema. PSYCHIATRIC: His affect appeared appropriate. IMAGING STUDIES: EKG, normal sinus rhythm, frequent PVCs, incomplete right bundle-branch block, ST-T changes, consider lateral ischemia when compared to an EKG scanned in the system from [address] Fish's office, the ST-T changes in the lateral leads appear worse. LABORATORY STUDIES: His troponins are negative. Chest x-ray, left lower pneumonia. IMPRESSION: 1. Upper respiratory tract infection with associated wheezing and shortness of breath, which is markedly improved. 2. Coronary artery disease status post coronary artery bypass grafting x3 as discussed above. 3. Cardiac catheterization in March 2014 with total occlusion of the right coronary artery, the circumflex and the vein graft to obtuse marginal 1 and the sequential vein graft to the right coronary artery and obtuse marginal 2 were patent. His ejection fraction was 50%. The left main and wales left anterior descending were patent without significant disease. 4. Worsening EKG changes in the lateral leads. 5. History of mild left ventricular dysfunction. At this point, before he got sick, he denied any anginal symptoms, worsening shortness of breath or dyspnea. In light of that, I agree with an echocardiogram and after he recovers from his upper respiratory tract infection/bronchitis/pneumonia, then he can as an outpatient have a reassessment of his level of dyspnea or potential anginal symptoms. If he is not having any anginal symptoms and his EF is not demonstrably different than it was in 2014, I would probably treat him medically. He is on aspirin, losartan, pravastatin and propranolol as an outpatient. I would reinitiate his medications. I would hold the propranolol and switch him over to Toprol-XL, which is less likely to cause bronchospasm in light of his upper respiratory tract infection. I would start it at 25 mg daily. He would like to switch his care to the [facility] and Dr. Karl Sol sees patients in Dr. Soria's office. I will discuss with Karl on Sunday arranging for an outpatient followup with him. All of this was discussed with the patient. Thank you for allowing us to participate in his care. There is nothing to suggest an acute coronary syndrome. DAMIR
[2017-09-01] MEDS ORDERED: DXY100 PO (14:38)
[2017-09-01] MEDS ORDERED: PRD10 PO (14:38)
[2017-09-01] MEDS ORDERED: VNTHFA/IN INH (14:38)
[2017-09-01] MEDS ORDERED: CEFD1CAP14 PO (14:38)
--- NOTE | 2017-09-01 14:43 | Discharge Instructions ---
Discharge Instructions Date of Service Sep 01, 2017. Admission Reason for Admission: Pneumonia, acute respiratory failure Discharge Discharge Diagnosis / Problem: Pneumonia, acute respiratory failure Discharge Goals Goal(s): Improve disease control, Diagnostic testing, Therapeutic intervention Activity Recommendations Activity Limitations: as noted below Exercise/Sports Limitations: gradually increase as tolerated Shower/Bathe: no limitations . Instructions / Follow-Up Instructions / Follow-Up You were admitted with shortness of breath and suspected pneumonia. You were also found to have a change on your ECG from previous. You did NOT have a heart attack recently, but this may be a sign of underlying worsening heart disease. It is recommended that you follow up with your Solar Field Installation Crew Member within the next 1 month. Please finish out your course of antibiotics, as well as the prednisone taper, for the possible pneumonia and wheezing. Please follow up with your PCP within 1-2 weeks. Current Hospital Diet Patient's current hospital diet: AHA Diet (Heart Healthy), Low Sodium Diet (2gm Na) Discharge Diet Recommended Diet: AHA Diet (Heart Healthy), Low Sodium Diet (2gm Na) Procedures Procedures Performed: Echocardiogram Chest xray Pending Studies Studies pending at discharge: yes List of pending studies: Final sputum culture Laboratory Results Last 24 Hours Test 09/01/17 05:59 White Blood Count 11.14 K/uL Red Blood Count 4.91 M/uL Hemoglobin 14.5 g/dL Hematocrit 43.8 % Mean Corpuscular Volume 89.2 fL Mean Corpuscular Hemoglobin 29.5 pg Mean Corpuscular Hemoglobin Concent 33.1 g/dl Platelet Count 128 K/uL Mean Platelet Volume 10.5 fL Neutrophils (%) (Auto) 78.9 % Lymphocytes (%) (Auto) 8.5 % Monocytes (%) (Auto) 12.3 % Eosinophils (%) (Auto) 0.0 % Basophils (%) (Auto) 0.1 % Neutrophils # (Auto) 8.79 K/uL Lymphocytes # (Auto) 0.95 K/uL Monocytes # (Auto) 1.37 K/uL Eosinophils # (Auto) 0.00 K/uL Basophils # (Auto) 0.01 K/uL RDW Standard Deviation 44.2 fL RDW Coefficient of Variation 13.6 % Immature Granulocyte % (Auto) 0.2 % Immature Granulocyte # (Auto) 0.02 K/uL Sodium Level 140 mmol/L Potassium Level 3.9 mmol/L Chloride Level 106 mmol/L Carbon Dioxide Level 28 mmol/L Anion Gap 6.0 mmol/L Blood Urea Nitrogen 24 mg/dl Creatinine 1.06 mg/dl Est Creatinine Clear Calc Drug Dose 68.4 ml/min Estimated GFR () 78.6 Estimated GFR (Non- 67.8 BUN/Creatinine Ratio 22.5 Random Glucose 100 mg/dl Calcium Level 8.8 mg/dl Magnesium Level 2.1 mg/dl Total Bilirubin 0.7 mg/dl Aspartate Amino Transf (AST/SGOT) 18 U/L Alanine Aminotransferase (ALT/SGPT) 14 U/L Alkaline Phosphatase 60 U/L Troponin I < 0.015 ng/ml Total Protein 6.2 gm/dl Albumin 3.5 gm/dl Globulin 2.7 gm/dl Albumin/Globulin Ratio 1.3 Medical Emergencies . Who to Call and When: Medical Emergencies: If at any time you feel your situation is an emergency, please call 911 immediately. . Non-Emergent Contact Non-Emergency issues call your: Primary Care Provider, Solar Field Installation Crew Member Call Non-Emergent contact if: you have a fever, temperature is above 100.5, you have any medication questions your cough and shortness of breath worsen, or for any other acute concerns. . . "Provider Documentation" section prepared by Delmi Lowe. . VTE Core Measure Inpt VTE Proph given/why not?: Unfractionated heparin SQ, SCD's
[2017-09-01 14:46] VITALS: BP 111/59; PULSE 43; TEMP 36.7; O2SAT 94
--- NOTE | 2017-09-01 14:58 | Discharge Summary ---
Discharge Summary Date of Service Sep 01, 2017. Discharge Summary Admission Date: Aug 31, 2017 at 04:33 Discharge Date: Sep 01, 2017 Discharge Disposition: Home Principal Diagnosis: Acute respiratory failure,suspected PNA Problems/Secondary Diagnoses: Abnormal ECG Chronic combined systolic and diastolic CHF Essential tremor s/p DBS Asbestosis CAD S/P CABG Dyslipidemia HTN Immunizations: Have You Had Influenza Vaccine: Yes History of Tetanus Vaccine?: Yes History of Pneumococcal: Yes History of Hepatitis B Vaccine: No Procedures: Chest xray ECHO Consultations: Cardiology Medication Reconciliation New Medications: Albuterol Hfa (Ventolin Hfa) 200 Puffs/52980 Mcg Aers 2-4 PUFFS INH Q6H, #1 INHALER Cefdinir (Omnicef) 300 Mg Cap 300 MG PO Q12H for 5 Days, #10 CAP Doxycycline Hyclate (Doxycycline Hyclate) 100 Mg Cap 100 MG PO BID for 5 Days, #10 CAP Prednisone (Prednisone) 10 Mg Tab 50 MG PO DAILY, #30 TAB x 2 days then 40mg daily x 2 days then 30mg daily x 2 days then 20mg daily x 2 days then 10mg daily x 2 days then STOP Continued Medications: Aspirin (Aspirin Ec) 81 Mg Tab 81 MG PO HS Cyanocobalamin (Vitamin B12 500MCG) 500 Mcg Tab 2500 MCG PO QAM, TAB Losartan Potassium (Cozaar) 25 Mg Tab 25 MG PO DAILY, TAB Pravastatin Sod (Pravastatin Sodium) 40 Mg Tab 80 MG PO HS Propranolol Hcl (Propranolol Hcl Er) 120 Mg Cap 120 MG PO QAM Discharge Exam Pt feeling greatly improved. Was ambulating around halls multiple times without any SOB and afterwards was able to cough up some green sputum. Since then, he feels tremendously improved. No CP. Discussed case with Cardiology. Review of Systems: Constitutional: No fever, No chills Eyes: No problem reported ENT: No problem reported Respiratory: + cough, + sputum, No wheezing, No shortness of breath, No dyspnea on exertion Cardiovascular: No chest pain Abdomen: No problem reported Musculoskeletal: No problem reported Genitourinary - Male: No problem reported Neurologic: No problem reported Psychiatric: No problem reported Endocrine: No problem reported Hematologic / Lymphatic: No problem reported Integumentary: No problem reported Physical Exam: General Appearance: WD/WN, no apparent distress Eyes: normal inspection, EOMI, sclerae normal ENT: hearing grossly normal, + pertinent finding (bilateral frontotemporal scars with skull deformity from post-op changes ) Neck: no JVD, trachea midline Respiratory/Chest: no respiratory distress, no accessory muscle use, + crackles (at left base, one exp wheeze in right upper lung field) Cardiovascular: regular rate, rhythm (with occasional ectopy), no edema, no murmur Abdomen / GI: normal bowel sounds, non tender, soft, no organomegaly, no pulsatile mass Extremities: normal inspection, no calf tenderness, normal capillary refill , no pedal edema Neurologic/Psychiatric: alert, normal mood/affect, oriented x 3 Skin: normal color, warm/dry, no rash Hospital Course This is a 76 yo m with a h/o asbestosis, CAD s/p CABG, HTN, HL, and essential tremor with deep brain stimulator in place, who presents with acute bronchospasm , acute respiratory failure, and he was found to have an abnormal EKG. Was found to have LLL infiltrate on CXR. He did not require oxygen and was not hypoxic, however he was in significant respiratory distress clinically on presentation. He was treated with nebulized bronchodilators, prednisone high dose, and Rocephin and doxycycline for suspected PNA. This may be atelectasis on CXR as he feels improved now with coughing up small amount of sputum. Procalcitonin was negative. Given underlying lung disease, will go ahead and finish out course of 7 days total with Omnicef and po doxy on discharge. Finish course of tapering prednisone. He actually has an appointment this week for PFTs and Pulmonology evaluation which is quite timely. For his abnormal ECG, serial troponins were negative. ECHO showed mildly reduced EF at 45-50%, and severe diastolic grade III dysfunction. Cardiology consult obtained and compared to old ECG and cath report, seems the inverted T waves in lateral leads are new. He may have occluded his venous graft at some point in the last few years, but not recently/acutely. Discussed with pt and he is actually planning on starting to see Dr. Sol in the [place] office soon. He will continue on home meds of ASA , Losartan 25 mg, Pravastatin 80 mg and Propranolol. Stable for discharge to home in good condition. Total Time Spent: Greater than 30 minutes This includes examination of the patient, discharge planning, medication reconciliation, and communication with other providers. Discharge Instructions Please refer to the electronic Patient Visit Report (Discharge Instructions) for additional information. Follow-Up With PCP within 1-2 weeks With Cardiology within 1 month Additional Copies To Abiola Soria M.D.
== END 2017-09-01 15:00 | disposition home or self-care (01) ==
LOC: C.EDB 00:51 → C.MED 04:33 → EDBEDREQ 04:55 → ENRESERV 05:25
PROVIDERS: ADMIT Hospitalist; ATTEND Family Medicine
DX: J96.00 Acute respiratory failure, unspecified whether with hypoxia or hypercapnia (principal); R94.31 Abnormal electrocardiogram [ECG] [EKG]; I50.42 Chronic combined systolic (congestive) and diastolic (congestive) heart failure; G25.0 Essential tremor; J61 Pneumoconiosis due to asbestos and other mineral fibers; I25.10 Atherosclerotic heart disease of native coronary artery without angina pectoris; E78.5 Hyperlipidemia, unspecified; I11.0 Hypertensive heart disease with heart failure; J44.9 Chronic obstructive pulmonary disease, unspecified; Z79.82 Long term (current) use of aspirin; Z82.49 Family history of ischemic heart disease and other diseases of the circulatory system; Z84.1 Family history of disorders of kidney and ureter

== ENCOUNTER → 2017-09-04 | Outpatient (CLI) | payer OTHER, MEDICARE ==
[~2017-09-04] MED LIST changes: +CEFD1CAP14 PO; +DXY100 PO; -LISI-791 PO; +LOSA25TA18 PO; -NAPR1TAB9 PO; +PRD10 PO; +VNTHFA/IN INH
--- NOTE | 2017-09-04 10:42 | DIAGNOSTIC IMAGING REPORT ---
(CHEST) THORAX WITHOUT CT DOSE: 542.18 mGy.cm HISTORY: J61 Asbestosis R05 Cough [id number] TECHNIQUE: Multiaxial CT images of the chest were performed without contrast. A dose lowering technique was utilized adhering to the principles of ALARA. COMPARISON: Chest CT 09/15/2015. FINDINGS: The central airways are patent. No pleural effusions. No pneumothorax. Multiple bilateral calcified pleural plaques and mild interstitial thickening persists. This is consistent with asbestos related disease. No new focal lung consolidations to suggest pneumonia. Mild honeycombing at the lung bases consistent with fibrotic change. Left chest wall electronic stimulator device with the leads extending into the neck. There are poststernotomy changes. No suspicious lytic or blastic osseous lesions. Limited views of the upper abdomen demonstrate a normal liver and spleen. Normal adrenal glands. No significant mediastinal or hilar lymphadenopathy. The heart is borderline enlarged. Normal caliber thoracic aorta. IMPRESSION: 1. No new focal lung consolidations to suggest pneumonia. 2. Extensive calcified bilateral pleural plaques are again noted. These are not significantly changed. There is also mild diffuse interstitial thickening and mild fibrotic change at the lung bases. These findings are consistent with asbestos related disease. Electronically signed by: Hayden Campuzano M.D. 09/04/2017 10:40 AM Dictated Date/Time: 09/04/2017 10:30 AM
--- NOTE | 2017-09-05 08:03 | PULMONARY FUNCTION TEST ---
This interpretation is based of ATS criteria: SPIROMETRY: Mild obstructive ventilatory disease. BRONCHODILATOR: No significant response. LUNG VOLUMES: Mildly elevated RV to TLC ratio. DIFFUSION: Within normal limits. INTERPRETATION: Suggestive of chronic bronchitis versus asthma. Clinical correlation is required.
== END | disposition home or self-care (01) ==
LOC: C.CTS 10:17
PROVIDERS: ATTEND Family Medicine
DX: J61 Pneumoconiosis due to asbestos and other mineral fibers (principal); R05 Cough; R91.8 Other nonspecific abnormal finding of lung field

== ENCOUNTER → 2018-03-01 | Outpatient (CLI) | payer OTHER, MEDICARE ==
[~2018-03-01] MED LIST changes: -CEFD1CAP14 PO
[2018-03-01 12:51] LABS: BASO % 0.3 %; BASO ABS # 0.02 K/uL (0-0.2); EOS % 1.8 %; EOS ABS # 0.12 K/uL (0-0.5); HEMATOCRIT 50.4 % (42-52); HEMOGLOBIN 16.3 g/dL (14.0-18.0); IG# 0.01 K/uL (0.00-0.02); LYMPH % 19.1 %; LYMPH ABS # 1.29 K/uL (1.2-3.4); MEAN CELL VOLUME 89.7 fL (80-100); MEAN CORPUSCULAR HGB CONC 32.3 g/dl (32-36); MEAN PLATELET VOLUME 10.6 fL (7.4-10.4); MONO % 12.3 %; MONO ABS # 0.83 K/uL (0.11-0.59); NEUT % 66.4 %; NEUT ABS # 4.49 K/uL (1.4-6.5); PLATELET COUNT 163 K/uL (130-400); RED CELL DISTRIBUTION WIDTH CV 13.8 % (11.5-14.5); RED CELL DISTRIBUTION WIDTH SD 45.4 fL (36.4-46.3); WHITE BLOOD COUNT 6.76 K/uL (4.8-10.8)
[2018-03-01 13:50] LABS: ALBUMIN 4.3 gm/dl (3.4-5.0); ALKALINE PHOSPHATASE 80 U/L (45-117); ALT/SGPT 23 U/L (12-78); AST/SGOT 20 U/L (15-37); BLOOD UREA NITROGEN 23 mg/dl (7-18); CALCIUM 9.2 mg/dl (8.5-10.1); CARBON DIOXIDE 30 mmol/L (21-32); CHOLESTEROL 133 mg/dl (0-200); CREATININE 1.17 mg/dl (0.60-1.40); GLUCOSE 91 mg/dl (70-99); LDL CHOLESTEROL CALCULATED 65 mg/dl; POTASSIUM 4.4 mmol/L (3.5-5.1); SODIUM 140 mmol/L (136-145); TOTAL PROTEIN 7.2 gm/dl (6.4-8.2)
== END | disposition home or self-care (01) ==
LOC: C.LABMFLN 09:49
PROVIDERS: ATTEND Family Medicine
DX: I25.10 Atherosclerotic heart disease of native coronary artery without angina pectoris (principal); E78.5 Hyperlipidemia, unspecified

== ENCOUNTER 2019-01-02 09:54 | Inpatient (IN) ==
--- NOTE | 2018-12-16 08:38 | PAT Medication Instructions ---
Medication Instructions Date of Service December 16, 2018 Home Medications Breo Ellipta 1 inh INHALATION QAM albuterol sulfate [Ventolin HFA] 2 puff INHALATION QID PRN aspirin [Aspir-81] 81 mg PO HS cyanocobalamin (vitamin B-12) 2,000 units PO DAILY ipratropium-albuterol 3 ml INHALATION QID PRN losartan 25 mg PO QAM metoprolol succinate 25 mg PO QAM pravastatin 80 mg PO HS pantoprazole 40 mg PO QAM DO NOT take the morning of surgery cyanocobalamin (vitamin B-12) 2,000 units PO DAILY losartan 25 mg PO QAM Take morning of surgery With a small sip of water, OTHERWISE NOTHING TO EAT OR DRINK AFTER MIDNIGHT: Breo Ellipta 1 inh INHALATION QAM albuterol sulfate [Ventolin HFA] 2 puff INHALATION QID PRN (if needed, and bring with you to the hospital) ipratropium-albuterol 3 ml INHALATION QID PRN (if needed) metoprolol succinate 25 mg PO QAM pantoprazole 40 mg PO QAM Take evening before surgery albuterol sulfate [Ventolin HFA] 2 puff INHALATION QID PRN (if needed) aspirin [Aspir-81] 81 mg PO HS ipratropium-albuterol 3 ml INHALATION QID PRN (if needed) pravastatin 80 mg PO HS Other Notes If you have any questions please call us at [phone] or [phone] or [phone] or [phone]
--- NOTE | 2018-12-16 10:35 | Anesthesiology Consultation ---
Date of Service December 16, 2018 Assessment & Plan (1) Encounter for pre-operative examination: CARDIO CLEARANCE (RANULFO FARMER PA-C) 12/20 = "Based on his functional status without limiting cardiopulmonary symptoms, stable LV systolic function, stable wall motion normalities, and stable valvular insufficiencies�patient is a low to intermediate risk to proceed with surgery as scheduled. He was advised to take his usual dose of Toprol-XL 25 mg on the day of surgery with sips of water. Postoperatively we would recommend monitoring daily laboratories and judicious use of IV fluids (based on his mildly reduced LV systolic function and grade 3 diastolic dysfunction) with close monitoring of daily I&O's and body weights." *PATIENT HAS DEEP BRAIN STIMULATOR PLACED FOR ESSENTIAL TREMOR. OR/MARISSA THOMASON MADE AWARE. PATIENT AWARE TO BRING REMOTE AM DOS. Chart Review Chart Review: Acceptable Risk for Surgery and Patient seen in Pre Admission Testing History Surgery Operation Date: 01/02/19 12:35 Proposed Procedures p Right Total Knee Arthroplasty - Keith Mejia MD Height/Weight Height: 5 ft 11 in Weight: 94.3 kg Allergies Allergy/AdvReac Type Severity Reaction Status Date / Time hydrocortisone AdvReac Unknown HALLUCIATIO Verified 01/02/19 10:05 NS Medications Home Medications Medication Instructions Recorded Confirmed Last Taken Breo Ellipta 1 inh INHALATION QA 09/19/18 01/02/19 01/02/19 06:00 albuterol sulfate [Ventolin HFA] 2 puff INHALATION QID PRN 09/19/18 01/02/19 01/01/19 10:00 aspirin [Aspir-81] 81 mg PO 09/19/18 01/02/19 01/01/19 21:00 cyanocobalamin (vitamin B-12) 2,000 units PO DAILY 09/19/18 01/02/19 01/01/19 07:00 [Vitamin B-12] ipratropium-albuterol 3 ml INHALATION QID PRN 09/19/18 01/02/19 01/01/19 10:00 losartan 25 mg PO QAM 09/19/18 01/02/19 01/01/19 07:00 metoprolol succinate 25 mg PO QAM 09/19/18 01/02/19 01/02/19 06:00 pravastatin 80 mg PO 09/19/18 01/02/19 01/01/19 21:00 pantoprazole 40 mg PO QAM 12/13/18 01/02/19 01/02/19 06:00 Active Medications Generic Name Dose Route Start Last Admin Trade Name Janette PRN Reason Stop Dose Admin Acetaminophen 1,000 mg 01/02/19 06:00 01/02/19 11:00 Tylenol PO 01/02/19 18:00 1,000 mg PREOP MAXINE Administration Celecoxib 200 mg 01/02/19 06:00 01/02/19 10:59 Celebrex PO 01/02/19 18:00 200 mg PREOP MAXINE Administration Dexamethasone 8 mg 01/02/19 06:00 01/02/19 10:59 Decadron PO 01/02/19 18:00 8 mg PREOP MAXINE Administration Famotidine 20 mg 01/02/19 06:00 01/02/19 11:00 Pepcid PO 01/02/19 18:00 20 mg PREOP MAXINE Administration Gabapentin 300 mg 01/02/19 06:00 01/02/19 10:59 Neurontin PO 01/02/19 18:00 300 mg PREOP MAXINE Administration Lactated Ringer's 1,000 mls @ 15 mls/hr 01/02/19 06:00 01/02/19 10:41 Lr IV 01/02/19 18:00 15 mls/hr .Q24H MAXINE Administration Metoclopramide HCl 10 mg 01/02/19 06:00 01/02/19 10:59 Reglan PO 01/02/19 18:00 10 mg PREOP MAXINE Administration Oxycodone HCl 10 mg 01/02/19 06:00 01/02/19 10:59 Oxycontin PO 01/02/19 18:00 10 mg PREOP MAXINE Administration Past Medical History Medical History Hyperlipidemia (Acute) Mitral regurgitation (Acute) Moderate per 2018 echo Ischemic cardiomyopathy (Acute) EF 50% (low normal) per 2014 cardiac cath. Asbestosis (Acute) Following with pulmonology, no concern for mesothelioma as of yet. "Stable" appearance per 10/02/[address] CAD (coronary artery disease) S/P [place] -- HAD CABG X 3 VESSELS. CARDIAC CATH 2013 SHOWED OCCLUDED SVG TO OM GRAFT, OTHERWISE PATENT, NO STENTS. Chronic obstructive pulmonary disease Degenerative disc disease GERD (gastroesophageal reflux disease) History of benign essential tremor s/p placement of DBS Hyperlipidemia Hypertension Myocardial Infarction 1983 OR 1984 Osteoarthritis Exercise / Class Metabolic Activity II 4-5 Yardwork/Stairs/Walk up hill (USING CANE FOR AMBULATION, SLOW MOVING BUT DENIES CP OR SOB WITH 1 FOS, DOES DAILY.) Past Surgical History Surgical History Fusion of spine LUMBAR History of arthroscopy B/L KNEE History of cardiac cath 1983 or 1984 - [place]...CABG 8-10 YRS AGO - NO SYMPTOMS, [place] - NO STENT(S) History of colonoscopy History of coronary artery bypass graft 1984, [facility]. 3 VESSEL History of herniorrhaphy Status post deep brain stimulator placement FOR CONTROL OF ESSENTIAL TREMOR. PT ADVISED TO BRING REMOTE ON DOS Past Anesthesia History No Hx of Anesthesia Complications and No Family Hx of Anesthesia Complications History of PONV No Hx of PONV and No Hx of Motion Sickness Social History Smoking Status: Former smoker tobacco type: cigarettes Smoking cigarettes per day: QUIT SMOKING IN 1984 Do You Dip or Chew Tobacco: Yes (.5 CAN PER DAY/ADVISED NPO) Smoking End Date: QUIT 1983 Hx Alcohol Use: No Hx Substance Use: No substance use type: does not use Review of Systems Pt denies any recent chest pain, shortness of breath, palpitations, fever. +"cold" currently, with post nasal drip and cough. Physical Exam Vital Signs Last Vital Signs Temp 36.8 C 01/02/19 10:14 Pulse 63 01/02/19 10:14 Resp 20 01/02/19 10:14 BP 147/95 H 01/02/19 10:14 Pulse Ox 97 01/02/19 10:14 BP: 131/85 (pt states he took a decongestant this morning) P: 70bpm SPO2: 95% RA T: 97.8 F R: 16 ENMT Mouth: + dental restorations (partial upper); no chipped teeth and no loose teeth Thyromental Distance: < 3.5 Finger Breadths (3) Mallampati Class: I Missing many teeth. Neck normal visual inspection; neck extension not limited Respiratory normal respiratory effort Auscultation: + diminished lung sounds (B/L) and + crackles (soft, B/L) Cardiovascular Rate/Rhythm: regular rate and regular rhythm (irreg irreg) Heart Sounds: no murmur Vessels: no carotid bruit Extremities: no edema Testing Electrocardiogram Date: 12/16/18 Findings: + NSR @ (61 with PACs) Inferior infarct, age undetermined. Compared with EKG of 08/31/2017, PVCs are no longer present, PACs are now present, incomplete right bundle branch block is no longer present. Echocardiogram Date: 12/20/18 EF: 50-55% Normal LV size with low normal systolic function. Probable hypokinesis of the base to mid inferior wall. Mild concentric LVH. Mild left atrial dilation. Sclerotic aortic valve without significant stenosis. Technically difficult study enhanced with IV Definity. Poor to fair image quality. Stress Test Date: 03/02/14 Partially fixed and mildly reversible defect of proximal lateral wall suggests previous [place] with mild itzel-infarct ischemia. Septal hypokinesis is from previous CABG. LV systolic function is mildly depressed. Transient ischemic dilation may suggest multivessel CAD. *Subsequent catheterization as below Cardiac Catheterization Date: 03/13/14 Significant two-vessel [place] coronary artery disease. Patent sequential graft to the right coronary artery and then to the second obtuse marginal branch of th e circumflex artery. Occlusion of the saphenous vein graft to the first obtuse marginal branch of the circumflex artery. Low normal LV systolic function (EF 50%). Other Testing 10/02/[address] IMPRESSION: 1. Stable appearance of the multifocal bilateral pleural nodules, which are partially calcified and that have a significant soft tissue component. These are atypical but suspected to represent asbestos-related exposure. No increased soft tissue to raise concern for neoplasm such as mesothelioma. 2. Stable associated parenchymal changes with peripheral fibrosis and atelectasis. 3. Trace emphysema. 4. Stable borderline mediastinal lymphadenopathy. 5. Cardiomegaly. Laboratory Results 12/16/18 11:02 12/16/18 11:02 PT 10.7 Seconds (9.0-12.0) 12/16/18 11:02 INR 1.0 (0.9-1.1) 12/16/18 11:02 APTT 28.6 Seconds (21.0-31.0) 12/16/18 11:02 5.3 % (4.5-5.6) 12/16/18 11:02 Dark Yellow 12/16/18 11:02 Clear (Clear) 12/16/18 11:02 5.0 (4.5-7.5) 12/16/18 11:02 Ur Specific Patten 1.041 (1.000-1.030) H 12/16/18 11:02 1+ (Negative) H 12/16/18 11:02 Negative (Negative) 12/16/18 11:02 Trace (Negative) H 12/16/18 11:02 Negative (Negative) 12/16/18 11:02 Ur Leukocyte Esterase Negative (Negative) 12/16/18 11:02 1-5 /hpf (0-5) 12/16/18 11:02 0-4 /hpf (0-4) 12/16/18 11:02 U Hyaline Cast (Auto) 5-10 /lpf (0-5) H 12/16/18 11:02 U Epithel Cells (Auto) 10-20 /lpf (0-5) H 12/16/18 11:02 Negative (Negative) 12/16/18 11:02 Blood Type O Positive 12/16/18 11:02 Antibody Screen NEGATIVE 12/16/18 11:02 Due to computer error, some values in table above are shown without headers. A1C 5.3%. See diagnostics tab for headers for UA. UA negative for bacteria.
[2018-12-16 11:57] LABS: Basophils # (auto) 0.02 K/uL (0-0.2); Basophils % (auto) 0.3 %; Eosinophils # (auto) 0.06 K/uL (0-0.5); Eosinophils % (auto) 0.9 %; Hematocrit (blood only) 45.8 % (42-52); Hemoglobin 14.9 g/dL (14.0-18.0); Immature Granulocytes # (auto) 0.01 K/uL (0.00-0.02); Immature Granulocytes % (auto) 0.2 %; Lymphocytes # (auto) 0.82 K/uL (1.2-3.4); Lymphocytes % (auto) 12.5 %; Mean Corpuscular Hgb Conc 32.5 g/dL (32-36); Mean Corpuscular Volume 90.9 fL (80-100); Mean Platelet Volume 9.8 fL (7.4-10.4); Monocytes # (auto) 0.77 K/uL (0.11-0.59); Monocytes % (auto) 11.8 %; Neutrophils # (auto) 4.87 K/uL (1.4-6.5); Neutrophils % (auto) 74.3 %; Platelet Count 151 K/uL (130-400); RDW Coefficient of Variation 13.2 % (11.5-14.5); RDW Standard Deviation 43.4 fL (36.4-46.3); Red Blood Count 5.04 M/uL (4.7-6.1); White Blood Count 6.55 K/uL (4.8-10.8)
[2018-12-16 12:02] LABS: Appearance Urine Clear (Clear); Bacteria Urine Automated Negative (Negative); Blood Urine Negative (Negative); Color Urine Dark Yellow; Glucose Urine UA Negative (Negative); Ketones Urine Trace (Negative); Leukocyte Esterase Urine Negative (Negative); Nitrite Urine Negative (Negative); Protein Urine 1+ (Negative); RBC Urine Automated 0-4 /hpf (0-4); Specific Gravity Urine 1.041 (1.000-1.030); Urobilinogen Urine Negative (Negative)
[2018-12-16 12:06] LABS: Albumin Level 3.6 gm/dl (3.4-5.0); BUN Creatinine Ratio 20.4 (10-20); Calcium 9.4 mg/dl (8.5-10.1); Creatinine Clr Calc Pharmacy 69.3 ml/min; Est GFR (African American) 80.3; Est GFR (Non-African American) 69.3; Potassium 4.7 mmol/L (3.5-5.1)
[2018-12-16 12:08] LABS: Partial Thromboplastin Ratio 1.1; Partial Thromboplastin Time 28.6 Seconds (21.0-31.0); Prothrombin Time 10.7 Seconds (9.0-12.0)
[2018-12-16 12:12] LABS: Bilirubin Urine Negative (Negative); Ictotest Urine Negative (Negative)
[2018-12-16 12:42] LABS: Estimated Average Glucose 105 mg/dl; Hemoglobin A1C 5.3 % (4.5-5.6)
--- NOTE | 2018-12-31 21:10 | History & Physical Report ---
Date of Service December 31, 2018 Assessment & Plan (1) Primary osteoarthritis of right knee: Patient is bone on bone medial compartment. He has significant pain and dysfunction with normal daily activities. He has failed conservative measures as above. Treatment options were discussed and he would like to proceed with right total knee arthroplasty. Risks, benefits, and alternatives to surgery including but not limited to infection, DVT, pain, stiffness, need for revision surgery, damage to blood vessels, damaged nerves, PE, , we're discuss with the patient and they wish to proceed all questions were answered. Will plan on aspirin 81 mg bid for 30 days postoperatively for DVT prophylaxis. Plans will be for home with Home Health Physical Therapy upon discharge from the hospital. He will follow up in the office postoperatively. History of Present Illness Chief Complaint: Right knee pain Primary Care Provider: Abiola Soria MD Patient is a 78 year old male with past medical history significant for HTN, RI in 1983, cabg, high cholesterol, asbestos, COPD, presence of a DBS due to essential tremor. He is s having ongoing and significant right knee pain that is starting to affect his daily activities. He has failed conservative measures including NSAIDS, cortisone injections, and visco injections. He has to use a cane to ambulate. He. Would like to proceed with surgical intervention. Patient denies headaches, sweats, fevers, chills, double vision, blurred vision, cough, sore throat, dysphagia, chest pain, sob, wheezing, n/v/d/c, numbness, tingling, fatigue, urinary symptoms, mood disorders. ROS positive for right knee pain and stiffness. Allergies Allergy/AdvReac Type Severity Reaction Status Date / Time hydrocortisone AdvReac Unknown HALLUCIATIO Verified 12/13/18 12:25 NS Home Medications Home Medications Medication Instructions Recorded Confirmed Type Breo Ellipta 1 inh INHALATION QAM 09/19/18 12/13/18 History albuterol sulfate [Ventolin HFA] 2 puff INHALATION QID PRN 09/19/18 12/13/18 History aspirin [Aspir-81] 81 mg PO HS 09/19/18 12/13/18 History cyanocobalamin (vitamin B-12) 2,000 units PO DAILY 09/19/18 12/13/18 History [Vitamin B-12] ipratropium-albuterol 3 ml INHALATION QID PRN 09/19/18 12/13/18 History losartan 25 mg PO QAM 09/19/18 12/13/18 History metoprolol succinate 25 mg PO QAM 09/19/18 12/13/18 History pravastatin 80 mg PO HS 09/19/18 12/13/18 History pantoprazole 40 mg PO QAM 12/13/18 12/13/18 History Past Med/Surg History Medical History Hyperlipidemia (Acute) Mitral regurgitation (Acute) Moderate per 2018 echo Ischemic cardiomyopathy (Acute) EF 50% (low normal) per 2013 cardiac cath. Asbestosis (Acute) Following with pulmonology, no concern for mesothelioma as of yet. "Stable" appearance per 10/02/[address] CAD (coronary artery disease) S/P RI -- HAD CABG X 3 VESSELS. CARDIAC CATH 2013 SHOWED OCCLUDED SVG TO OM GRAFT, OTHERWISE PATENT, NO STENTS. Chronic obstructive pulmonary disease Degenerative disc disease GERD (gastroesophageal reflux disease) History of benign essential tremor s/p placement of DBS Hyperlipidemia Hypertension Myocardial Infarction 1983 OR 1984 Osteoarthritis Surgical History Fusion of spine LUMBAR History of arthroscopy B/L KNEE History of cardiac cath 1983 or 1984 - RI...CABG 8-10 YRS AGO - NO SYMPTOMS, [place] - NO STENT(S) History of colonoscopy History of coronary artery bypass graft 1984, [facility]. 3 VESSEL History of herniorrhaphy Status post deep brain stimulator placement FOR CONTROL OF ESSENTIAL TREMOR. PT ADVISED TO BRING REMOTE ON DOS Social History Preferred Language: Danish Communication Ability: Effective Associate Research Scientist Required: No Beliefs That Will Affect Care: None Current Living Situation: Spouse Other Information That Helps Us Care for You: Yes ( HAS HEALTHCARE PROBLEMS) Feels Safe at Home: Yes Smoking Status: Former smoker Tobacco Type: cigarettes Cigarettes Per Day: QUIT SMOKING IN 1984 Do You Dip or Chew Tobacco: Yes (.5 CAN PER DAY/ADVISED NPO) Smoking End Date: QUIT 1983 Second Hand Exposure: No Tobacco Cessation Education Requested by Patient: No Hx Alcohol Use: No Hx Substance Use: No Review of Systems All systems reviewed & are unremarkable except as noted in HPI & below Physical Exam Constitutional: well developed and well nourished; no acute distress Eyes: PERRL, conjunctivae normal, anicteric sclerae ENMT: external ear and nose normal, oropharynx normal Neck: trachea midline, no thyromegaly Respiratory: normal respiratory effort, lungs clear to auscultation Cardiovascular: RRR, no murmur, no edema Musculoskeletal: Right knee tenderness medial joint line, moderate crepitation with range of motion, range of motion 5 to 120�, stable to valgus and varus stress test. Skin: no rashes, warm and dry Neurologic: patellar DTR's 2+ bilat, sensation intact Psychiatric: A+Ox3, euthymic affect Results & Data Laboratory Results Lab Results 12/16/18 12/16/18 12/16/18 Range/Units 11:02 11:02 11:02 WBC 6.55 (4.8-10.8) K/uL RBC 5.04 (4.7-6.1) M/uL Hgb 14.9 (14.0-18.0) g/dL Hct 45.8 (42-52) % MCV 90.9 (80-100) fL MCH 29.6 (25-34) pg MCHC 32.5 (32-36) g/dL RDW Std Deviation 43.4 (36.4-46.3) fL RDW Coeff of Saida 13.2 (11.5-14.5) % Plt Count 151 (130-400) K/uL MPV 9.8 (7.4-10.4) fL Immature Gran % (Auto) 0.2 % Neut % (Auto) 74.3 % Lymph % (Auto) 12.5 % [place] % (Auto) 11.8 % Eos % (Auto) 0.9 % Baso % (Auto) 0.3 % Immature Gran # (Auto) 0.01 (0.00-0.02) K/uL Neut # (Auto) 4.87 (1.4-6.5) K/uL Lymph # (Auto) 0.82 L (1.2-3.4) K/uL [place] # (Auto) 0.77 H (0.11-0.59) K/uL Eos # (Auto) 0.06 (0-0.5) K/uL Baso # (Auto) 0.02 (0-0.2) K/uL PT 10.7 (9.0-12.0) Seconds INR 1.0 (0.9-1.1) APTT 28.6 (21.0-31.0) Seconds PTT Ratio 1.1 Sodium 141 (136-145) mmol/L Potassium 4.7 (3.5-5.1) mmol/L Chloride 106 (98-107) mmol/L Carbon Dioxide 30 (21-32) mmol/L Anion Gap 6.0 (3-11) BUN 21 H (7-18) mg/dl Creatinine 1.03 (0.6-1.4) mg/dl Est Cr Clr Drug Dosing 69.3 ml/min Est GFR ( Amer) 80.3 Est GFR (Non-Af Amer) 69.3 BUN/Creatinine Ratio 20.4 H (10-20) Glucose 92 (70-99) mg/dl Estimat Average Glucose mg/dl Hemoglobin A1c (4.5-5.6) % Calcium 9.4 (8.5-10.1) mg/dl Albumin 3.6 (3.4-5.0) gm/dl Urine Color Urine Appearance (Clear) Urine pH (4.5-7.5) Ur Specific [place] (1.000-1.030) Urine Protein (Negative) Urine Glucose (UA) (Negative) Urine Ketones (Negative) Urine Blood (Negative) Urine Nitrite (Negative) Urine Bilirubin (Negative) Urine Urobilinogen (Negative) Ur Leukocyte Esterase (Negative) Urine WBC (Auto) (0-5) /hpf Urine RBC (Auto) (0-4) /hpf U Hyaline Cast (Auto) (0-5) /lpf U Epithel Cells (Auto) (0-5) /lpf Urine Bacteria (Auto) (Negative) Blood Type Antibody Screen 12/16/18 12/16/18 12/16/18 Range/Units 11:02 11:02 11:02 WBC (4.8-10.8) K/uL RBC (4.7-6.1) M/uL Hgb (14.0-18.0) g/dL Hct (42-52) % MCV (80-100) fL MCH (25-34) pg MCHC (32-36) g/dL RDW Std Deviation (36.4-46.3) fL RDW Coeff of Saida (11.5-14.5) % Plt Count (130-400) K/uL MPV (7.4-10.4) fL Immature Gran % (Auto) % Neut % (Auto) % Lymph % (Auto) % [place] % (Auto) % Eos % (Auto) % Baso % (Auto) % Immature Gran # (Auto) (0.00-0.02) K/uL Neut # (Auto) (1.4-6.5) K/uL Lymph # (Auto) (1.2-3.4) K/uL [place] # (Auto) (0.11-0.59) K/uL Eos # (Auto) (0-0.5) K/uL Baso # (Auto) (0-0.2) K/uL PT (9.0-12.0) Seconds INR (0.9-1.1) APTT (21.0-31.0) Seconds PTT Ratio Sodium (136-145) mmol/L Potassium (3.5-5.1) mmol/L Chloride (98-107) mmol/L Carbon Dioxide (21-32) mmol/L Anion Gap (3-11) BUN (7-18) mg/dl Creatinine (0.6-1.4) mg/dl Est Cr Clr Drug Dosing ml/min Est GFR ( Amer) Est GFR (Non-Af Amer) BUN/Creatinine Ratio (10-20) Glucose (70-99) mg/dl Estimat Average Glucose 105 mg/dl Hemoglobin A1c 5.3 (4.5-5.6) % Calcium (8.5-10.1) mg/dl Albumin (3.4-5.0) gm/dl Urine Color Dark Yellow Urine Appearance Clear (Clear) Urine pH 5.0 (4.5-7.5) Ur Specific [place] 1.041 H (1.000-1.030) Urine Protein 1+ H (Negative) Urine Glucose (UA) Negative (Negative) Urine Ketones Trace H (Negative) Urine Blood Negative (Negative) Urine Nitrite Negative (Negative) Urine Bilirubin Negative (Negative) Urine Urobilinogen Negative (Negative) Ur Leukocyte Esterase Negative (Negative) Urine WBC (Auto) 1-5 (0-5) /hpf Urine RBC (Auto) 0-4 (0-4) /hpf U Hyaline Cast (Auto) 5-10 H (0-5) /lpf U Epithel Cells (Auto) 10-20 H (0-5) /lpf Urine Bacteria (Auto) Negative (Negative) Blood Type O Positive Antibody Screen NEGATIVE Diagnostic Findings Right knee radiographs: [id number] medial compartment with periarticular osteophtye formation and subchondral sclerosis.
[~2019-01-02 09:54] MED LIST changes: +ACETAMINOPHEN 500 MG TAB PO SCH; -ASPI81TA28 PO; +BUPIVACAINE 0.5 % 5 MG/1 ML PF 10ML VIAL ONE; +CEFAZOLIN 2000MG 2,000 MG/15 ML SYR IV SCH; -CYAN500T13 PO; +CeleBREX 200 MG CAP PO SCH; -DXY100 PO; +EPINEPHrine INJ 1 MG/ML AMP ONE; +FAMOTIDINE 20 MG TAB PO SCH; +GABAPENTIN 300 MG PO SCH; -LOSA25TA18 PO; +LR 500ML BOLUS, THEN 15ML/HR IV SCH; +METOCLOPRAMIDE HCL 10 MG TABLET PO SCH; +OXYCODONE HCL 10 MG TABCR (OXYCONTIN) PO SCH; -PRD10 PO; -PROP120C PO; -PRVC40 PO; +ROPIVACAINE 0.5% 5 MG/ML 30 ML VIAL ONE; +TRANEXAMIC ACID 1,000 MG **IV Intra-op IV SCH; +TRANEXAMIC ACID 1,000 MG **IV Pre-op IV SCH; -VNTHFA/IN INH; +dexAMETHasone 4 MG TAB PO SCH
[2019-01-02] MEDS ORDERED: fentaNYL citrate 100 MCG/2 ML VIAL ONE (10:17)
[2019-01-02] MEDS ORDERED: MIDAZOLAM HCL 1 MG/ML 2ML VIAL ONE (10:17)
[2019-01-02] MEDS ORDERED: LIDOCAINE HCL 2% 2 ML VIAL/AMP(20MG/ML) INFIL ONE (10:18)
[2019-01-02] MEDS ORDERED: PROPOFOL IV EMULSION 10 MG/ML 20 ML VIAL IV ONE (10:18)
[2019-01-02] MEDS ORDERED: ONDANSETRON INJ 2 MG/ML 2 ML VIAL ONE (10:18)
--- NOTE | 2019-01-02 10:22 | History & Physical Bridge Note ---
Date of Service January 02, 2019 History & Physical Bridge Note I have examined the patient, reviewed the History & Physical and in the interval since the performance of the History & Physical I have noted the following changes of clinical significance: no changes noted
[2019-01-02] MEDS ORDERED: ONDANSETRON INJ 2 MG/ML 2 ML VIAL IV PRN ×2 (10:32→14:46)
[2019-01-02] MEDS ORDERED: ePHEDrine sulfate 50 MG/ML AMP IV PRN (10:32)
[2019-01-02] MEDS ORDERED: ATROPINE SULFATE 0.1 MG/ML 10ML SYR IV PRN (10:32)
[2019-01-02] MEDS ORDERED: fentaNYL citrate 100 MCG/2 ML VIAL IV PRN (10:32)
[2019-01-02] MEDS ORDERED: HYDROmorphone INJ 1 MG/ML SYRINGE IV PRN (10:32)
[2019-01-02] MEDS ORDERED: LABETALOL HCL IV 5 MG/ML 20ML IV PRN (10:32)
[2019-01-02] MEDS ORDERED: MEPERIDINE HCL 25 MG/ML CARP IV PRN (10:32)
[2019-01-02] MEDS ORDERED: PHENYLEPHRINE 100MCG/ML 5ML SYR IV PRN (10:32)
[2019-01-02] MEDS ORDERED: POVIDONE-IODINE OP SOLN 30 ML BTL ONE (11:01)
[2019-01-02] MEDS ORDERED: BACITRACIN INJ 50,000 UNIT VIAL ONE (11:01)
[2019-01-02] MEDS ORDERED: ORTHO JOINT ANESTHETIC ONE (11:01)
[2019-01-02] MEDS ORDERED: ePHEDrine sulfate 50 MG/ML AMP ONE (12:06)
[2019-01-02] MEDS ORDERED: SODIUM CHLORIDE 0.9% INJ 10 ML VIAL ONE (12:06)
--- NOTE | 2019-01-02 13:19 | Operative Report ---
Post Operative Report Pre & Post Diagnosis Operation Date: 01/02/19 12:35 Pre-Op Diagnosis: Osteoarthritis, Right Knee Post-Op Diagnosis: Osteoarthritis, Right Knee Procedure Operation Date: 01/02/19 12:35 Actual Procedures p Right Total Knee Arthroplasty(Right) - Keith Mejia MD Surgeon Keith Mejia MD [place] Paul Stevenson PA-C Estimated Blood Loss 20 Findings Consistent with Post-Op Diagnosis Specimens Bone and tissue Drains 2 Hemovac Anesthesia Type Spinal MAC Complications none Disposition Accompanied Patient To Recovery: No Disposition: Recovery Room Indications The patient is a 78-year-old male long-standing arthritic change of the right knee. [id number] particular in the medial compartment. He is failed conservative measures including injection, anti-inflammatories, rehab. He wishes to proceed with a right total knee arthroplasty. Description of Procedure Risks benefits and alternatives of surgery including but not limited to infection, DVT, pain, stiffness, need for surgery, damage to blood vessels, damage to nerves or risks of anesthesia were discussed with the patient and they wished to proceed. The patient was identified and the laterality was confirmed and marked. They received a preoperative antibiotic as well as a spinal anesthetic and an abductor canal block. A well-padded tourniquet was applied and then the limb was prepped and draped in standard manner with ChloraPrep. The limb was exsanguinated and the tourniquet was inflated. I made a standard anterior incision. I sharply incised the skin then utilized Bovie electrocautery to achieve hemostasis. I made a medial parapatellar arthrotomy and mobilized the patella laterally. I then excised the anterior horns of the medial and lateral meniscus as well as the infrapatellar fat pad. I elevated a portion of the MCL off of the tibia. I drilled and alignment akash into the femur and then placed my 5 degree valgus distal femoral alignment guide into position. He had a preoperative flexion contracture and so I removed an additional 2 mm off of the distal femur. I then sized with a posterior reference for a size 7. I then pinned into place the 5 in 1 femoral cutting guide. I made my anterior, posterior and chamfer cuts. I then excised the cruciates and the remaining portions of the menisci. I then used an extra medullary tibial cutting guide. Pinned this into place and made my tibial resection. I then pinned into place the tibial plate a utilizing alignment akash to confirm rotation. I then cut for the post. Utilizing a lamina blacktop spreader and I then removed posterior osteophytes off the femur. I then placed a trial femur into position and cut for the trochlear component. I then sequentially trialed to size the polyethylene until there was good soft tissue balancing and range of motion. I then prepared the patella with a freehand cut utilizing sagittal saw. I sized and drilled for the patella. There was good tracking to the patella no lateral release was needed. All the trial components were removed. The deep tissues were anesthetized with an ortho mix solution. Then with Simplex HV with gentamicin cement, I cemented my definitive components. Definitive components, Camacho and Nephew Jourtorrance 2: Femur 7 Tibia 7 Poly 9 Patella 38 oval A betadine soak was performed. A deep drain was placed. The arthrotomy was closed with interrupted #1 Vicryl suture subcutaneous tissue was closed with interrupted 2-0 Vicryl suture. The skin was closed with with cori. An Acticoat and Elizabeth dressing were placed. Sterile dressings were applied. All needle and sponge counts were correct at the end of the procedure patient was transferred to the PACU in stable condition without apparent complication. The PA-C was necessary for assistance with procedure for assistance in positioning, prepping, draping, retraction and closure. I attest to the content of the Intraoperative Record and any orders documented therein. Any exceptions are noted below.
--- NOTE | 2019-01-02 14:25 | XRay Report ---
RIGHT KNEE 2 VIEWS History: Right total knee arthroplasty. Degenerative arthritis. Postop. FINDINGS: The patient is status post a right total knee arthroplasty. The hardware is intact. No frac ture or dislocation. Skin cori and surgical drains are in place. IMPRESSION: Right total knee arthroplasty. No evidence for hardware complication. Electronically signed by: Hayden Campuzano M.D. 01/02/2019 2:22 PM
--- NOTE | 2019-01-02 14:39 | Anesthesiology Progress Note ---
Date of Service January 02, 2019 Anesthesia Post Procedure Vital Signs Vital Signs: Temp Pulse Pulse Resp BP Pulse Ox 01/02/19 14:24 37.5 C 63 18 119/69 94 01/02/19 14:15 71 17 122/73 93 01/02/19 14:05 65 18 117/71 100 01/02/19 13:55 67 14 116/71 100 01/02/19 13:49 37.1 C 68 21 111/68 100 01/02/19 10:14 36.8 C 63 20 147/95 H 97 Transfer of Care Handoff Completed per policy Notes Mental Status: alert / awake / arousable Patient Amnestic to Procedure: Yes Nausea / Vomiting: adequately controlled Pain: adequately controlled Airway Patency, RR, SpO2: stable & adequate BP & HR: stable & adequate Hydration State: stable & adequate Neuraxial Anesthesia: was administered and sensory block is resolving Anesthetic Complications: no major complications apparent and Pt Satisfied with anesthetic care
[2019-01-02] MEDS ORDERED: ALBUT/IPRATROP 3MG/0.5MG NEB 3 ML VIAL INH PRN (14:46)
[2019-01-02] MEDS ORDERED: HYDROmorphone INJ 0.5 MG/0.5 ML SYR IV PRN (14:46)
[2019-01-02] MEDS ORDERED: MAGNESIUM HYDROXIDE SUSP 30 ML UDC PO PRN (14:46)
[2019-01-02] MEDS ORDERED: OXYCODONE HCL IR 5 MG TAB (IMMEDIATE RELEASE) PO PRN (14:46)
[2019-01-02] MEDS ORDERED: NALOXONE HCL 0.4 MG/1 ML VIAL/CARP IV PRN (14:46)
[2019-01-02] MEDS ORDERED: SODIUM CHLORIDE 0.9% 1000ML 1,000 ML IV SCH (14:46)
[2019-01-02] MEDS ORDERED: ALBUTEROL HFA 8 GM INHALER INH PRN (14:46)
[2019-01-02] MEDS ORDERED: BISACODYL 10 MG SUPP PR PRN (14:46)
[2019-01-02] MEDS ORDERED: BREO ELLIPTA - ORDER AWAITING ACTION SCH (16:00)
--- NOTE | 2019-01-02 17:54 | Hospitalist Progress Note ---
Date of Service January 02, 2019 Assessment & Plan (1) Post-operative state: s/p TKA 01/02 pain control, bowel regimen, dvt proph per primary Monitor for acute blood loss - cbc am (2) CAD (coronary artery disease): continue ASA, losartan, metoprolol, home statin (3) Ischemic cardiomyopathy: as above (4) Hyperlipidemia: home pravastatin (5) GERD (gastroesophageal reflux disease): continue pantoprazole Subjective Mr. Williamson is post TKA today. His family is at bedside. He has no complaints Pmhx: hld, ischemic cardiomyopathy, CAD with CABG in 1983, deep brain stimulator for essential tremor, Social: lives with his , retired, 1/2 can of chew per day, quit smoking in 1983, no alcohol Family: brother of heart attack in the , hld, htn Review of Systems Review of Systems: All systems reviewed & are unremarkable except as noted in HPI & below Physical Exam Physical Exam: General: no distress Eyes: normal inspection, PERLL Respiratory: chest non tender, clear to auscultation, normal breath sounds, no respiratory distress, no accessory muscle use Cardiac: regular rate and rhythm, no rub or gallop, no murmur, no edema, no jvd GI/: active bowel sounds, no abd pain or tenderness, soft, non distended Extremities: normal range of motion, normal strength, non tender Neuro:oriented x 3, moves all extremities Psych: alert, normal mood and affect Skin: normal color, dry Results & Data Vital Signs (Past 12 Hours) Vital Signs Temp Pulse Pulse Pulse Resp BP Pulse Ox 01/02/19 16:49 36.2 C L 72 18 123/73 95 01/02/19 16:16 36.5 C 69 17 136/80 94 01/02/19 15:15 36.4 C L 68 17 140/88 94 01/02/19 14:47 36.5 C 67 16 133/77 92 01/02/19 14:24 37.5 C 63 18 119/69 94 01/02/19 14:15 71 17 122/73 93 01/02/19 14:05 65 18 117/71 100 01/02/19 13:55 67 14 116/71 100 01/02/19 13:49 37.1 C 68 21 111/68 100 01/02/19 10:14 36.8 C 63 20 147/95 H 97
[2019-01-02] MEDS: CEFAZOLIN 2000MG 2,000 MG/15 ML SYR IV SCH (20:27)
[2019-01-02] MEDS: ASPIRIN 81 MG ECTAB PO SCH (20:28)
[2019-01-02] MEDS: DOCUSATE SODIUM 100 MG CAP PO SCH (20:28)
[2019-01-02] MEDS: ACETAMINOPHEN 500 MG TAB PO SCH (20:28)
[2019-01-02] MEDS ORDERED: PRAVASTATIN SOD 40 MG TAB PO SCH (21:00)
[2019-01-02] MEDS ORDERED: SENNA 8.6 MG TAB PO SCH (21:00)
[2019-01-03] MEDS: CEFAZOLIN 2000MG 2,000 MG/15 ML SYR IV SCH (04:45)
[2019-01-03] MEDS: ACETAMINOPHEN 500 MG TAB PO SCH ×2 (04:45→11:19)
[2019-01-03 05:49] LABS: Hematocrit (blood only) 37.5 % (42-52); Hemoglobin 12.5 g/dL (14.0-18.0); Mean Corpuscular Hgb Conc 33.3 g/dL (32-36); Mean Corpuscular Volume 88.9 fL (80-100); Mean Platelet Volume 9.9 fL (7.4-10.4); Platelet Count 140 K/uL (130-400); RDW Coefficient of Variation 13.1 % (11.5-14.5); RDW Standard Deviation 42.3 fL (36.4-46.3); Red Blood Count 4.22 M/uL (4.7-6.1); White Blood Count 13.82 K/uL (4.8-10.8)
[2019-01-03] MEDS ORDERED: ROPIVACAINE 0.5% HCL/PF 150 MG, BUPIVACAINE 0.5% MPF 30 ML, EPINEPHrine 30MG/30ML (OR U... INFIL SCH (06:00)
[2019-01-03 06:24] LABS: BUN Creatinine Ratio 18.4 (10-20); Calcium 8.4 mg/dl (8.5-10.1); Creatinine Clr Calc Pharmacy 60.4 ml/min; Est GFR (African American) 68.1; Est GFR (Non-African American) 58.8; Potassium 4.3 mmol/L (3.5-5.1)
--- NOTE | 2019-01-03 07:21 | Orthopedic Progress Note ---
Date of Service January 03, 2019 Assessment & Plan (1) Primary osteoarthritis of right knee: POD#1 Right TKA -Pain management -DVT prophylaxis-ASA 81mg BID x 30 days -PT/OT -D/C planning-home later today as long as PT goes well with plans on having home therapy. Subjective Patient is POD#1 right TKA. Doing well. Does have mild pain this morning, but is well controlled. No other complaints. He is requesting to go home today. Review of Systems Review of Systems: All systems reviewed & are unremarkable except as noted in HPI & below Physical Exam Physical Exam: Dressing is c/d/i. Hemovac in place. RICHARD in place. No calf tenderness. toes are mobile. Sensation and n/v status are intact. Results & Data Vital Signs (Past 12 Hours) Vital Signs Temp Pulse Resp BP Pulse Ox 01/02/19 23:12 36.5 C 67 18 107/67 93 Laboratory Results Lab Results 12/16/18 12/16/18 12/16/18 Range/Units 11:02 11:02 11:02 WBC 6.55 (4.8-10.8) K/uL RBC 5.04 (4.7-6.1) M/uL Hgb 14.9 (14.0-18.0) g/dL Hct 45.8 (42-52) % MCV 90.9 (80-100) fL MCH 29.6 (25-34) pg MCHC 32.5 (32-36) g/dL RDW Std Deviation 43.4 (36.4-46.3) fL RDW Coeff of Saida 13.2 (11.5-14.5) % Plt Count 151 (130-400) K/uL MPV 9.8 (7.4-10.4) fL Immature Gran % (Auto) 0.2 % Neut % (Auto) 74.3 % Lymph % (Auto) 12.5 % Door % (Auto) 11.8 % Eos % (Auto) 0.9 % Baso % (Auto) 0.3 % Immature Gran # (Auto) 0.01 (0.00-0.02) K/uL Neut # (Auto) 4.87 (1.4-6.5) K/uL Lymph # (Auto) 0.82 L (1.2-3.4) K/uL Door # (Auto) 0.77 H (0.11-0.59) K/uL Eos # (Auto) 0.06 (0-0.5) K/uL Baso # (Auto) 0.02 (0-0.2) K/uL PT 10.7 (9.0-12.0) Seconds INR 1.0 (0.9-1.1) APTT 28.6 (21.0-31.0) Seconds PTT Ratio 1.1 Sodium 141 (136-145) mmol/L Potassium 4.7 (3.5-5.1) mmol/L Chloride 106 (98-107) mmol/L Carbon Dioxide 30 (21-32) mmol/L Anion Gap 6.0 (3-11) BUN 21 H (7-18) mg/dl Creatinine 1.03 (0.6-1.4) mg/dl Est Cr Clr Drug Dosing 69.3 ml/min Est GFR ( Amer) 80.3 Est GFR (Non-Af Amer) 69.3 BUN/Creatinine Ratio 20.4 H (10-20) Glucose 92 (70-99) mg/dl Estimat Average Glucose mg/dl Hemoglobin A1c (4.5-5.6) % Calcium 9.4 (8.5-10.1) mg/dl Albumin 3.6 (3.4-5.0) gm/dl Urine Color Urine Appearance (Clear) Urine pH (4.5-7.5) Ur Specific [place] (1.000-1.030) Urine Protein (Negative) Urine Glucose (UA) (Negative) Urine Ketones (Negative) Urine Blood (Negative) Urine Nitrite (Negative) Urine Bilirubin (Negative) Urine Urobilinogen (Negative) Ur Leukocyte Esterase (Negative) Urine WBC (Auto) (0-5) /hpf Urine RBC (Auto) (0-4) /hpf U Hyaline Cast (Auto) (0-5) /lpf U Epithel Cells (Auto) (0-5) /lpf Urine Bacteria (Auto) (Negative) Blood Type Antibody Screen 12/16/18 12/16/18 12/16/18 Range/Units 11:02 11:02 11:02 WBC (4.8-10.8) K/uL RBC (4.7-6.1) M/uL Hgb (14.0-18.0) g/dL Hct (42-52) % MCV (80-100) fL MCH (25-34) pg MCHC (32-36) g/dL RDW Std Deviation (36.4-46.3) fL RDW Coeff of Saida (11.5-14.5) % Plt Count (130-400) K/uL MPV (7.4-10.4) fL Immature Gran % (Auto) % Neut % (Auto) % Lymph % (Auto) % [place] % (Auto) % Eos % (Auto) % Baso % (Auto) % Immature Gran # (Auto) (0.00-0.02) K/uL Neut # (Auto) (1.4-6.5) K/uL Lymph # (Auto) (1.2-3.4) K/uL Door # (Auto) (0.11-0.59) K/uL Eos # (Auto) (0-0.5) K/uL Baso # (Auto) (0-0.2) K/uL PT (9.0-12.0) Seconds INR (0.9-1.1) APTT (21.0-31.0) Seconds PTT Ratio Sodium (136-145) mmol/L Potassium (3.5-5.1) mmol/L Chloride (98-107) mmol/L Carbon Dioxide (21-32) mmol/L Anion Gap (3-11) BUN (7-18) mg/dl Creatinine (0.6-1.4) mg/dl Est Cr Clr Drug Dosing ml/min Est GFR ( Amer) Est GFR (Non-Af Amer) BUN/Creatinine Ratio (10-20) Glucose (70-99) mg/dl Estimat Average Glucose 105 mg/dl Hemoglobin A1c 5.3 (4.5-5.6) % Calcium (8.5-10.1) mg/dl Albumin (3.4-5.0) gm/dl Urine Color Dark Yellow Urine Appearance Clear (Clear) Urine pH 5.0 (4.5-7.5) Ur Specific [place] 1.041 H (1.000-1.030) Urine Protein 1+ H (Negative) Urine Glucose (UA) Negative (Negative) Urine Ketones Trace H (Negative) Urine Blood Negative (Negative) Urine Nitrite Negative (Negative) Urine Bilirubin Negative (Negative) Urine Urobilinogen Negative (Negative) Ur Leukocyte Esterase Negative (Negative) Urine WBC (Auto) 1-5 (0-5) /hpf Urine RBC (Auto) 0-4 (0-4) /hpf U Hyaline Cast (Auto) 5-10 H (0-5) /lpf U Epithel Cells (Auto) 10-20 H (0-5) /lpf Urine Bacteria (Auto) Negative (Negative) Blood Type O Positive Antibody Screen NEGATIVE 01/03/19 01/03/19 Range/Units 05:33 05:33 WBC 13.82 H (4.8-10.8) K/uL RBC 4.22 L (4.7-6.1) M/uL Hgb 12.5 L (14.0-18.0) g/dL Hct 37.5 L (42-52) % MCV 88.9 (80-100) fL MCH 29.6 (25-34) pg MCHC 33.3 (32-36) g/dL RDW Std Deviation 42.3 (36.4-46.3) fL RDW Coeff of Saida 13.1 (11.5-14.5) % Plt Count 140 (130-400) K/uL MPV 9.9 (7.4-10.4) fL Immature Gran % (Auto) % Neut % (Auto) % Lymph % (Auto) % Door % (Auto) % Eos % (Auto) % Baso % (Auto) % Immature Gran # (Auto) (0.00-0.02) K/uL Neut # (Auto) (1.4-6.5) K/uL Lymph # (Auto) (1.2-3.4) K/uL Door # (Auto) (0.11-0.59) K/uL Eos # (Auto) (0-0.5) K/uL Baso # (Auto) (0-0.2) K/uL PT (9.0-12.0) Seconds INR (0.9-1.1) APTT (21.0-31.0) Seconds PTT Ratio Sodium 136 (136-145) mmol/L Potassium 4.3 (3.5-5.1) mmol/L Chloride 103 (98-107) mmol/L Carbon Dioxide 30 (21-32) mmol/L Anion Gap 3.0 (3-11) BUN 22 H (7-18) mg/dl Creatinine 1.18 (0.6-1.4) mg/dl Est Cr Clr Drug Dosing 60.4 ml/min Est GFR ( Amer) 68.1 Est GFR (Non-Af Amer) 58.8 BUN/Creatinine Ratio 18.4 (10-20) Glucose 123 H (70-99) mg/dl Estimat Average Glucose mg/dl Hemoglobin A1c (4.5-5.6) % Calcium 8.4 L (8.5-10.1) mg/dl Albumin (3.4-5.0) gm/dl Urine Color Urine Appearance (Clear) Urine pH (4.5-7.5) Ur Specific [place] (1.000-1.030) Urine Protein (Negative) Urine Glucose (UA) (Negative) Urine Ketones (Negative) Urine Blood (Negative) Urine Nitrite (Negative) Urine Bilirubin (Negative) Urine Urobilinogen (Negative) Ur Leukocyte Esterase (Negative) Urine WBC (Auto) (0-5) /hpf Urine RBC (Auto) (0-4) /hpf U Hyaline Cast (Auto) (0-5) /lpf U Epithel Cells (Auto) (0-5) /lpf Urine Bacteria (Auto) (Negative) Blood Type Antibody Screen
--- NOTE | 2019-01-03 07:49 | Anesthesiology Progress Note ---
Date of Service January 03, 2019 Anesthesia Post Procedure Vital Signs Vital Signs: Temp Pulse Pulse Pulse Resp BP Pulse Ox 01/02/19 23:12 36.5 C 67 18 107/67 93 01/02/19 17:45 36.7 C 70 18 125/75 93 01/02/19 16:49 36.2 C L 72 18 123/73 95 01/02/19 16:16 36.5 C 69 17 136/80 94 01/02/19 15:15 36.4 C L 68 17 140/88 94 01/02/19 14:47 36.5 C 67 16 133/77 92 01/02/19 14:24 37.5 C 63 18 119/69 94 01/02/19 14:15 71 17 122/73 93 01/02/19 14:05 65 18 117/71 100 01/02/19 13:55 67 14 116/71 100 01/02/19 13:49 37.1 C 68 21 111/68 100 01/02/19 10:14 36.8 C 63 20 147/95 H 97 Notes Mental Status: alert / awake / arousable and participated in evaluation Nausea / Vomiting: adequately controlled Pain: adequately controlled Airway Patency, RR, SpO2: stable & adequate BP & HR: stable & adequate Hydration State: stable & adequate
[2019-01-03] MEDS: DOCUSATE SODIUM 100 MG CAP PO SCH (08:15)
[2019-01-03] MEDS: ASPIRIN 81 MG ECTAB PO SCH (08:16)
[2019-01-03] MEDS ORDERED: MULTIVITAMIN TAB PO SCH (09:00)
[2019-01-03] MEDS ORDERED: METOPROLOL SUCC 25MG EXT REL TAB PO SCH (09:00)
[2019-01-03] MEDS ORDERED: CYANOCOBALAMIN 500 MCG TABLET (VITAMIN B-12) PO SCH (09:00)
[2019-01-03] MEDS ORDERED: FLUTICASONE/VILANTEROL INHALER INH SCH (09:00)
[2019-01-03] MEDS ORDERED: PANTOprazole 40 MG TAB PO SCH (09:00)
[2019-01-03] MEDS ORDERED: LOSARTAN POTASSIUM 25 MG TAB PO SCH (09:00)
--- NOTE | 2019-01-07 04:50 | Discharge Summary ---
DISCHARGE DIAGNOSIS: Degenerative joint disease, right knee. SECONDARY DIAGNOSES: Hyperlipidemia, mitral regurgitation, ischemic cardiomyopathy, asbestosis, coronary artery disease, chronic obstructive pulmonary disease, degenerative disc disease, gastroesophageal reflux disease, hyperlipidemia, hypertension, history of myocardial infarction in mid 80s, osteoarthritis. CONSULTS: None. COMPLICATIONS: None. PROCEDURES: Right total knee arthroplasty performed by Dr. Mejia on 01/02/2019. BRIEF HISTORY: As dictated in the history and physical. HOSPITAL SUMMARY: The patient was admitted on the above-noted date and had the above-noted surgery performed, which he tolerated well. On the first postoperative day, the patient was doing well and having some mild pain that morning, but was well controlled. No other complaints. He was resting well and was hoping to go home that day. Vital signs were stable. He was afebrile. Dressings clean, dry and intact. Hemovac was placed. RICHARD dressing was in place. No calf tenderness. Toes were mobile. Sensation and neurovascular status were intact. He was started on physical therapy protocol and continued on DVT prophylaxis and pain management and was progressing well with his physical therapy and remaining stable and it was felt he could be discharged to home with home health services. For further review, please see chart. LABORATORY AND X-RAY DATA: As per chart. DISCHARGE INSTRUCTIONS: The patient was discharged home in satisfactory condition on 01/03/2019. Diet: Regular. Activity: Weightbearing as tolerated on the right lower extremity. Follow TK instruction sheets and special care instructions as noted. Follow up with Dr. Mejia in 2 weeks. The patient is to call for appointment if one has not been made for you. DISCHARGE MEDICATIONS: Aspirin 81 mg p.o. b.i.d., hydrocodone/acetaminophen one to two tabs p.o. q. 4-6 hours p.r.n. Resume home meds as listed and stop taking previous aspirin dose.
== END 2019-01-03 12:21 | disposition home health service (06) ==
LOC: ASU 09:54 → 3E 14:07